=== PATIENT | female | born 1980 | race Caucasian/White ===

== ENCOUNTER 2024-11-23 13:11 | Inpatient (IN) | payer MEDICAID, OTHER ==
[~2024-11-23] VITALS: Ht 172.7 cm; Wt 113.0 kg
--- NOTE | 2024-11-23 13:21 | ECG ---
[facility] Test Date: 2024-11-23 Test Time: 13:13:45 Pat Name: SHERIF CORONEL Department: ED Room: [address] [place] [address] Gender: F Paster Hat Lining: MINO : 1980 Requested By: YURIY MARKHAM Order Number: [id number] Reading MD: Gerson Ford Measurements Intervals [place] Rate: 70 P: 0 HI: 134 QRS: 7 QRSD: 91 T: 22 QT: 420 QTc: 454 Interpretive Statements Atrial-paced complexes Baseline wander in lead(s) V4 Electronically Signed On 11-27-2024 9:43:15 PDT by Gerson Ford Please click the below link to view image of tracing.
--- NOTE | 2024-11-23 13:25 | ED.PDOC ---
HPI Comments 44 y.o female with PMHx of HTN, COPD, and bipolar disorder, presents to the ED via EMS for a chief complaint of chest pain associated with nausea and SOB that started 2-3 days ago. Patient describes pain as sharp, radiates across her chest, rating a 8/10 on the pain scale and worsens on deep inspiration. EMS reports patient's pain also worsened on palpation per their assessment on scene. Patient was given one NTG but patient denied any pain relief. Patient admits to smoking methamphetamine 2 days ago, was seen at [place] for same complaint yesterday and had a full cardiac evaluation as well as abdominal assessment due to pain at that time and was discharged with no acute findings. Patient is not on any current medications. She also reports occasional use of marijuana and tobacco via vape use. Chief Complaint: Chest Pain Time Seen by MD: 13:16 Reviewed Notes: Nurses Notes, Staff Training And Development Manager Notes, Medications, Allergies Allergies: Coded Allergies: Amoxicillin (Verified Allergy, Unknown, 11/23/24) Morphine (Verified Allergy, Unknown, 11/23/24) Information Source: Patient, Emergency Med Personnel Mode of Arrival: EMS Severity: Moderate Timing: Days Duration: Since onset Prehospital treatment: 12 Lead EKG, Tube Cleaning Operator, NTG Location: Substernal Radiation: No Radiation Quality: Sharp Onset: At Rest Cardiac Risk Factors: Family History, HTN PE Risk Factors: None History of: Similar pain in past Modifying Factors: Nothing Associated Signs and Symptoms: SOB, N/V (nausea without vomiting ) Past Medical History PAST MEDICAL HISTORY: COPD, HTN Past Medical History (Other): Bipolar disorder Surgical History: Cholecystectomy, Pacemaker, Tubal Ligation FLOOR SERVICE WORKER SPRING History: No Pertinent FLOOR SERVICE WORKER SPRING History Family History Family History: Family hx of heart magnolia Social History Smoker: Other (vape) Alcohol: Occasionally Drugs: Marijuana, Methamphetamine Lives In: Home Constitutional: denies: chills, diaphoresis, fatigue, fever, malaise, sweats, weakness, others EENTM: denies: blurred vision, double vision, ear bleeding, ear discharge, ear drainage, ear pain, ear ringing, eye pain, eye redness, hearing loss, mouth pain, mouth swelling, nasal discharge, nose bleeding, nose congestion, nose pain, photophobia, tearing, throat pain, throat swelling, voice changes, others Respiratory: reports: SOB at rest, shortness of breath; denies: cough, hemoptysis, orthopnea, SOB with excertion, stridor, wheezing, others Cardiovascular: reports: chest pain; denies: dizzy spells, diaphoresis, Dyspnea on exertion, edema, irregular heart beat, left arm pain, lightheadedness, palpitations, PND, syncope, others Gastrointestinal: reports: nausea; denies: abdomen distended, abdominal pain, blood streaked bowels, constipated, diarrhea, dysphagia, difficulty swallowing, hematemesis, melena, poor appetite, poor fluid intake, rectal bleeding, rectal pain, vomiting, others Genitourinary: denies: abnormal vagina bleeding, burning, dyspareunia, dysuria, flank pain, frequency, hematuria, incontinence, pain, , vagina discharge, urgency, others Neurological: denies: dizziness, fainting, headache, left sided numbness, left sided weakness, numbness, paresthesia, pre-existing deficit, right sided numbness, right sided weakness, seizure, speech problems, tingling, tremors, weakness, others Musculoskeletal: denies: back pain, gout, joint pain, joint swelling, muscle pain, muscle stiffness, neck pain, others Integumetry: denies: bruises, change in color, change in hair/nails, dryness, laceration, lesions, lumps, rash, wounds, others Allergic/Immunocompromised: denies: Difficulty Healing, Frequent Infections, Hives, Itching, others Hematologic/Lymphatic: denies: anemia, blood clots, easy bleeding, easy bruising, swollen glands, others Endocrine: denies: excessive hunger, excessive sweating, excessive thirst, excessive urination, flushing, intolerance to cold, intolerance to heat, unexplained weight gain, unexplained weight loss, others Psychiatric: denies: anxiety, bipolar disorder, depression, hopeless, panic disorder, schizophrenia, sleepless, suicidal, others All Other Systems: Reviewed and Negative Physical Exam General Appearance: Moderate Distress, Obese HEENT: Normal ENT Inspection, Pharynx Normal, TMs Normal Neck: Full Range of Motion, Non-Tender, Normal, Normal Inspection Respiratory: Chest Non-Tender, Lungs Clear, No Accessory Muscle Use, No Respiratory Distress, Normal Breath Sounds Cardiovascular: No Edema, No JVD, No Murmur, No Gallop, Normal Peripheral Pulses, Regular Rate/Rhythm, Other (Pacemaker to the left chest) Breast Exam: Deferred Gastrointestinal: No Organomegaly, Non Tender, No Pulsatile Mass, Normal Bowel Sounds, Soft Genitalia: Deferred Pelvic: Deferred Rectal: Deferred Extremities: No calf tenderness, Normal capillary refill, Normal inspection, Normal range of motion, Non-tender, No pedal edema Musculoskeletal : Apperance: Normal Neurologic: Alert, reclamation kettle tender II-XII nml as Tested, Motor Weakness, Normal Affect, Normal Mood, No Sensory Deficits Cerebellar Function: Normal Reflexes: Normal Skin: Dry, Pallor, Warm Lymphatic: No Adenopathy EKG EKG : Pulse Rate (adult): 70 Cardiac Rhythm: Paced Was a procedure done? Was a procedure done?: No CP Differential Dx Differential Diagnosis: N/A Differential Diagnosis: Angina, Chest Wall Pain, Cholelithiasis, Costochondritis, Esophageal reflux/spasm, Gastritis, Myocardial Infarction, Pericarditis, Pneumonia, Pulmonary Embolus X-Ray, Labs, Meds, VS Vital Signs Date Time Temp Pulse Resp B/P (MAP) Pulse Ox O2 Delivery O2 Flow Rate FiO2 11/23/24 14:35 78 11/23/24 14:12 Room Air* 0 21 11/23/24 13:25 70 11/23/24 13:14 97.9 79 18 139/97 (111) 98 97.9 11/23/24 13:13 70 Lab Test 11/23/24 13:25 Range/Units White Blood Count 8.1 4.4-10.8 10^3/uL Red Blood Count 4.20 4.0-5.20 10^6/uL Hemoglobin 12.2 12.2-16.2 g/dL Hematocrit 35.8 L 36.0-46.0 % Mean Corpuscular Volume 85.2 80.0-100.0 fL Mean Corpuscular Hemoglobin 29.0 28.0-32.0 pg Mean Corpuscular Hemoglobin Concent 34.0 32.0-36.0 g/dL Red Cell Distribution Width 14.5 H 11.8-14.3 % Platelet Count 240 140-450 10^3/uL Mean Platelet Volume 7.5 6.9-10.8 fL Neutrophils (%) (Auto) 73.5 37.0-80.0 % Lymphocytes (%) (Auto) 17.6 10.0-50.0 % Monocytes (%) (Auto) 6.9 0.0-12.0 % Eosinophils (%) (Auto) 1.4 0.0-7.0 % Basophils (%) (Auto) 0.6 0.0-2.0 % Neutrophils # (Auto) 6.0 1.6-8.6 10 ^3/uL Lymphocytes # (Auto) 1.4 0.4-5.4 10 ^3/uL Monocytes # (Auto) 0.6 0-1.3 10 ^3/uL Eosinophils # (Auto) 0.1 0-0.8 10 ^3/uL Basophils # (Auto) 0 0-0.2 10 ^3/uL Nucleated Red Blood Cells 0.0 % Sodium Level 142 136-145 mmol/L Potassium Level 3.6 3.5-5.1 mmol/L Chloride Level 108 H 98-107 mmol/L Carbon Dioxide Level 24 20-31 mmol/L Anion Gap 10 5-15 Blood Urea Nitrogen 15 9-23 mg/dL Creatinine 1.05 H 0.550-1.02 mg/dL Glomerular Filtration Rate Calc 67 >90 mL/min BUN/Creatinine Ratio 14.3 10.0-20.0 Serum Glucose 84 74-106 mg/dL Calcium Level 9.7 8.7-10.4 mg/dL Troponin I High Sensitivity 4 </=34 ng/L Current Medications Medications (Trade) Dose Ordered Sig/Trent Route Start Time Stop Time Status Last Admin Aspirin 162 mg ONCE ONCE PO 11/23/24 13:30 11/23/24 13:32 DC 11/23/24 13:30 The patient was given aspirin here in the emergency department's The CBC and chemistry panel are within normal limits At this time, an IV Hep-Lock was established The chest x-ray shows: No sign of any abnormalities At this time, the patient is being admitted to the hospitalist The patient understands and agrees with the management The patient's diagnosis is acute myocardial ischemia and methamphetamine use Images Reviewed?: Images reviewed and evaluated by me Time of 1ST Reevaluation: 14:00 Reevaluation 1ST: Unchanged Patient Education/Counseling: Diagnosis, Treatment, Prognosis Family Education/Counseling: No Family Present SEPSIS Sepsis Screen Physician Orders Electrocardigram (11/23/24 16:17) Troponin-I Hs (11/23/24 14:17) Troponin-I Hs (11/23/24 16:17) Chest Portable (11/23/24 14:23) Blood Pressure (11/23/24 13:30) Pulse Oximetry (11/23/24 13:30) Drug Screen (11/23/24 13:30) Heplock Iv (11/23/24 13:30) Tube Cleaning Operator (11/23/24 13:30) Vital Signs Date Time Temp Pulse Resp B/P (MAP) Pulse Ox O2 Delivery O2 Flow Rate FiO2 11/23/24 14:35 78 11/23/24 14:12 Room Air* 0 21 11/23/24 13:25 70 11/23/24 13:14 97.9 79 18 139/97 (111) 98 97.9 11/23/24 13:13 70 Laboratory Tests Test 11/23/24 13:25 White Blood Count 8.1 10^3/uL (4.4-10.8) Medications Medications Dose Ordered Sig/Trent Route Start Time Stop Time Status Last Admin Dose Admin Aspirin 162 mg ONCE ONCE PO 11/23/24 13:30 11/23/24 13:32 DC 11/23/24 13:30 Departure 1 Departure Time of Disposition: 15:11 Impression: Primary Impression: Acute chest pain Additional Impression: Acute myocardial ischemia Disposition: 09 ADMITTED INPATIENT Admit to: Tele Condition: Fair Critical Care Note Critical Care Time?: Yes (45 min-critical care time only) Stability Stability form required: Yes Unstable for transfer: Telemetry monitoring (Telemetry monitoring required), ED Physician Assesment (Clinical assesment) Heart Score Heart Score: Heart Score Response (Comments) Value History Moderate Suspicious 1 EKG Normal 0 Age <45 0 Risk Factors >3 or Hx ASHD 2 Troponin Normal limit 0 Total 3 I personally scribed for YURIY MARKHAM MD ([facility]) on 11/23/24 at 13:25. Electronically submitted by Bertha Sims ([employer]). I personally scribed for YURIY MARKHAM MD ([facility]) on 11/23/24 at 13:26. Electronically submitted by Bertha Sims ([employer]). YURIY MARKHAM MD Nov 23, 2024 13:25
[2024-11-23] MEDS: ASPirin 81 mg TAB PO ONE (13:30)
[2024-11-23 13:37] LABS: Basophils # (auto) 0 10 ^3/uL (0-0.2); Basophils % (auto) 0.6 % (0.0-2.0); Eosinophils # (auto) 0.1 10 ^3/uL (0-0.8); Eosinophils % (auto) 1.4 % (0.0-7.0); Hematocrit 35.8 % (36.0-46.0); Hemoglobin 12.2 g/dL (12.2-16.2); Lymphocytes # (auto) 1.4 10 ^3/uL (0.4-5.4); Lymphocytes % (auto) 17.6 % (10.0-50.0); Mean Corpuscular Volume 85.2 fL (80.0-100.0); Monocytes # (auto) 0.6 10 ^3/uL (0-1.3); Monocytes % (auto) 6.9 % (0.0-12.0); Neutrophils % (auto) 73.5 % (37.0-80.0); Platelet Count (auto) 240 10^3/uL (140-450); Red Cell Distribution Width 14.5 % (11.8-14.3); White Blood Cell 8.1 10^3/uL (4.4-10.8)
[2024-11-23 13:46] LABS: Potassium 3.6 mmol/L (3.5-5.1); Sodium 142 mmol/L (136-145)
[2024-11-23 13:47] LABS: Anion Gap 10 (5-15); Carbon Dioxide 24 mmol/L (20-31)
[2024-11-23 13:48] LABS: Calcium 9.7 mg/dL (8.7-10.4)
[2024-11-23 13:49] LABS: Chloride 108 mmol/L (98-107)
[2024-11-23 13:53] LABS: BUN/Creatinine Ratio 14.3 (10.0-20.0); Blood Urea Nitrogen 15 mg/dL (9-23); Glucose 84 mg/dL (74-106)
--- NOTE | 2024-11-23 14:37 | ECG ---
[facility] Test Date: 2024-11-23 Test Time: 14:35:52 Pat Name: SHERIF CORONEL Department: ED Room: [address] [place] [address] Gender: F Attractions Associate: MARIA : 1980 Requested By: YURIY MARKHAM Order Number: [id number] Reading MD: Gerson Ford Measurements Intervals [place] Rate: 78 P: -1 WV: 122 QRS: 51 QRSD: 93 T: 31 QT: 378 QTc: 431 Interpretive Statements Sinus rhythm Baseline wander in lead(s) V2,V6 Electronically Signed On 11-27-2024 9:43:28 PDT by Gerson Ford Please click the below link to view image of tracing.
--- NOTE | 2024-11-23 14:52 | DVH ---
CHEST RADIOGRAPH Indication: cp Technique: Single frontal view of the chest was obtained COMPARISON: None FINDINGS: Lines and Tubes: Left chest pacemaker Lungs: Clear Pleura: No effusion. No pneumothorax. Cardiomediastinal contours: Unremarkable Bones: Unremarkable IMPRESSION: No acute disease.
[2024-11-23] MEDS ORDERED: ONDANSETRON HCL 4 MG/2 ML VIAL IV PRN (17:30)
[2024-11-23] MEDS ORDERED: ACETAMINOPHEN 325 MG TAB PO PRN (17:30)
[2024-11-23] MEDS ORDERED: MORPHINE SULFATE INJ 2 MG/ml SYRG IV PRN (17:30)
[2024-11-23] MEDS ORDERED: NITROGLYCERIN 0.4 MG SL TAB SL PRN (17:30)
[2024-11-23] MEDS ORDERED: DOCUSATE SOD 100 MG CAP PO PRN (17:30)
--- NOTE | 2024-11-23 17:58 | DVHHP2 ---
History of Present Illness Reason for Visit: Chest pain History of Present Illness Namita Voss is a 44-year-old female with past medical history of hypertension, pacemaker, and borderline personality disorder, who came to the hospital for chest pain. Patient states she has been having chest pain for a couple days. She states she was just discharged today from [facility] for chest pain. States she had a cardiac work up and was cleared, but her chest pain continued so she came to this ER. She also states that she feels there is something wrong with her pacemaker. Patient is homeless, and states the only medication she is taking is her antihypertensive. Cardiovascular: HTN Pulmonary: COPD Psych: Other (Borderline personality disorder) Past Surgical History: Cholecystectomy, Other (Pacemaker), Tubal Ligation Smoke: 1 pack per day (vape) ALCOHOL: rare Drugs: Marijuana, Other (methamphetamine) Lives: Homeless Domestic Violence: Neg Review of Systems Constitutional: No: Fever, Chills, Sweats, Weakness, Malaise, Other Eyes: No: Pain, Vision change, Conjunctivae inflammation, Eyelid inflammation, Other, Redness ENT: No: Ear pain, Ear discharge, Nose pain, Nose discharge, Nose congestion, M outh pain, Mouth swelling, Throat pain, Throat swelling, Other Respiratory: No: Cough, Dry, Shortness of breath, SOB with excertion, Wheezing, Hemoptysis, Pleuritic Pain, Sputum, Wheezing, Other Cardiovascular: Chest Pain; No: Palpitations, Orthopnea, Paroxysmal Noc. Dyspnea, Edema, Lt Headedness, Other Gastrointestinal: No: Nausea, Vomiting, Abdominal Pain, Diarrhea, Constipation, Melena, Hematochezia, Other Genitourinary: No Dysuria, No Frequency, No Incontinence, No Hematuria, No Retention, No Other Musculoskeletal: No: other, neck pain, shoulder pain, arm pain, back pain, hand pain, leg pain, foot pain Skin: No: Rash, Lesions, Jaundice, Bruising, Other Neurological: No: Weakness, Numbness, Incoordination, Change in speech, Confu erin, Seizures, Other Allergies: Coded Allergies: Amoxicillin (Verified Allergy, Unknown, 11/23/24) Morphine (Verified Allergy, Unknown, 11/23/24) Exam Vital Signs Vital Signs Date Time Temp Pulse Resp B/P (MAP) Pulse Ox O2 Delivery O2 Flow Rate FiO2 11/23/24 14:35 78 11/23/24 14:12 Room Air* 0 21 11/23/24 13:14 97.9 18 139/97 (111) 98 97.9 General Appearance: Alert, Oriented X3, Cooperative, mild distress HEENT: Atraumatic, PERRLA Respiratory: Clear to auscultation, Normal air movement Cardiovascular: Regular rate, Normal S1, Normal S2, No murmurs Abdominal: Normal bowel sounds, Soft, No tenderness Extremities: No clubbing, No cyanosis, No edema, Normal pulses Skin: No rashes, No breakdown, No significant lesion Neuro: Normal gait, Normal speech, Strength at 5/5 X4 ext Psych/Mental Status: Mental status NL, Mood NL Labs/Xrays Labs Test 11/23/24 16:57 11/23/24 13:25 Range/Units White Blood Count 8.1 4.4-10.8 10^3/uL Red Blood Count 4.20 4.0-5.20 10^6/uL Hemoglobin 12.2 12.2-16.2 g/dL Hematocrit 35.8 L 36.0-46.0 % Mean Corpuscular Volume 85.2 80.0-100.0 fL Mean Corpuscular Hemoglobin 29.0 28.0-32.0 pg Mean Corpuscular Hemoglobin Concent 34.0 32.0-36.0 g/dL Red Cell Distribution Width 14.5 H 11.8-14.3 % Platelet Count 240 140-450 10^3/uL Mean Platelet Volume 7.5 6.9-10.8 fL Neutrophils (%) (Auto) 73.5 37.0-80.0 % Lymphocytes (%) (Auto) 17.6 10.0-50.0 % Monocytes (%) (Auto) 6.9 0.0-12.0 % Eosinophils (%) (Auto) 1.4 0.0-7.0 % Basophils (%) (Auto) 0.6 0.0-2.0 % Neutrophils # (Auto) 6.0 1.6-8.6 10 ^3/uL Lymphocytes # (Auto) 1.4 0.4-5.4 10 ^3/uL Monocytes # (Auto) 0.6 0-1.3 10 ^3/uL Eosinophils # (Auto) 0.1 0-0.8 10 ^3/uL Basophils # (Auto) 0 0-0.2 10 ^3/uL Nucleated Red Blood Cells 0.0 % Sodium Level 142 136-145 mmol/L Potassium Level 3.6 3.5-5.1 mmol/L Chloride Level 108 H 98-107 mmol/L Carbon Dioxide Level 24 20-31 mmol/L Anion Gap 10 5-15 Blood Urea Nitrogen 15 9-23 mg/dL Creatinine 1.05 H 0.550-1.02 mg/dL Glomerular Filtration Rate Calc 67 >90 mL/min BUN/Creatinine Ratio 14.3 10.0-20.0 Serum Glucose 84 74-106 mg/dL Calcium Level 9.7 8.7-10.4 mg/dL CHEST RADIOGRAPH FINDINGS: Lines and Tubes: Left chest pacemaker Lungs: Clear Pleura: No effusion. No pneumothorax. Cardiomediastinal contours: Unremarkable Bones: Unremarkable IMPRESSION: No acute disease. Assessment/Plan Assessment/Plan Assessment: Acute chest pain, Polysubstance abuse, Hypertension, Plan: Admit to Tele, ECHO, ASA, Statin, Lipid panel, TSH, Social service consult, Consider cardiology consult if symptoms persist, Plan discussed with: Patient My Orders Orders - JENSEN CARRION Procedure Category Date Status Time Admit ADMIT 11/23/24 Transmitted 17:29 Code Status CODE 11/23/24 Transmitted 17:29 2 Gm Sodium Diet DIET 11/23/24 Transmitted Dinner Ondansetron Hcl PHA 11/23/24 Transmitted (Zofran) 17:30 Docusate Sodium PHA 11/23/24 Transmitted Capsule (Colace 17:30 Complete Blood Count LAB 11/24/24 Verified 04:00 Comprehensive LAB 11/24/24 Verified Metabolic Panel 04:00 Pt Request For Service PT 11/23/24 Transmitted 17:29 Echo 2d Mode Cardiac US 11/23/24 Transmitted DOP 17:29 Condition: Fair ABIMBOLA 11/23/24 Transmitted 17:29 Acetaminophen Tablet PHA 11/23/24 Transmitted (Tylenol Tablet) 17:30 Nitroglycerin PHA 11/23/24 Transmitted Sublingual (Ntrostat 17:30 Morphine Sulfate PHA 11/23/24 Transmitted Injection 17:30 Stat Ekg For Chest ABIMBOLA 11/23/24 Transmitted Pain 17:29 Notify Of Changes ABIMBOLA 11/23/24 Transmitted From Base 17:29 Film Washer For ABIMBOLA 11/23/24 Transmitted 24 Hours 17:29 Emergency Dysrhythmia ABIMBOLA 11/23/24 Transmitted Protocol 17:29 Rhythm Strips Once ABIMBOLA 11/23/24 Transmitted Every Shift 17:29 Oxygen By Nasal RT 11/23/24 Transmitted Cannula 17:29 Lisinopril Tablet PHA 11/24/24 Transmitted (Zestril Tablet) 10:00 Urinalysis LAB 11/23/24 Transmitted 17:29 Date of Service: Nov 23, 2024 Billing Provider: JENSEN CARRION Common Visit Codes: [id number] INP/OBS CARE (MOD) JENSEN CARRION Nov 23, 2024 17:58
[2024-11-23 18:02] VITALS: BP 135/82; PULSE 87; RESP 20; TEMP 98; O2SAT 98
[2024-11-23 18:24] LABS: Triglycerides 79 mg/dL (< 150)
[2024-11-23 18:25] LABS: LDL Cholesterol 66 mg/dL (< 100)
[2024-11-23 18:26] LABS: Cholesterol 113 mg/dL (< 200)
[2024-11-23 18:30] LABS: HDL Cholesterol 38 mg/dL (40-59)
[2024-11-23] MEDS ORDERED: ATORVASTATIN 20 MG TAB PO SCH (22:00)
[2024-11-24] MEDS ORDERED: ASPirin 81 mg TAB PO SCH (10:00)
[2024-11-24] MEDS ORDERED: LISINOPRIL 20 MG TAB PO SCH (10:00)
[2024-11-24] MEDS ORDERED: BUMETANIDE 1 MG TAB PO SCH (10:00)
== END 2024-11-23 21:45 | disposition left against medical advice (07) | DRG 203 ==
LOC: EDBD 13:11 → ER 13:11 → OVERFLOW 17:29 → UNDODEPER 11-24 01:02
PROVIDERS: ADMIT Nurse Practitioner Family; ATTEND Nurse Practitioner Family
DX: R07.89 Other chest pain (principal); F17.200 Nicotine dependence, unspecified, uncomplicated; I10 Essential (primary) hypertension; F31.9 Bipolar disorder, unspecified; F60.3 Borderline personality disorder; J44.9 Chronic obstructive pulmonary disease, unspecified; F19.10 Other psychoactive substance abuse, uncomplicated; Z53.29 Procedure and treatment not carried out because of patient's decision for other reasons; Z90.49 Acquired absence of other specified parts of digestive tract; Z95.0 Presence of cardiac pacemaker; Z59.00 Homelessness unspecified; Z88.5 Allergy status to narcotic agent; Z88.0 Allergy status to penicillin
CPT/HCPCS: 36415; 71045; 80048; 80061; 84443; 84484; 85025; 93005; 99291; G0378

== ENCOUNTER 2024-12-03 16:46 | Inpatient (IN) | payer MEDICAID ==
[~2024-12-03] VITALS: Ht 172.7 cm; Wt 121.6 kg
[2024-12-03 17:45] LABS: Hematocrit 38.7 % (36.0-46.0); Hemoglobin 13.0 g/dL (12.2-16.2); Mean Corpuscular Hemoglobin 28.8 pg (28.0-32.0); Mean Corpuscular Volume 86.2 fL (80.0-100.0); Nucleated Red Blood Cells % 0.0 %
[2024-12-03 17:52] LABS: Chloride 103 mmol/L (98-107); Potassium 3.8 mmol/L (3.5-5.1); Sodium 141 mmol/L (136-145)
[2024-12-03 17:53] LABS: Anion Gap 10 (5-15); Calcium 9.8 mg/dL (8.7-10.4); Carbon Dioxide 28 mmol/L (20-31)
[2024-12-03 17:58] LABS: BUN/Creatinine Ratio 9.4 (10.0-20.0); Blood Urea Nitrogen 11 mg/dL (9-23); Glucose 82 mg/dL (74-106)
--- NOTE | 2024-12-03 18:52 | ED.PDOC ---
HPI Comments 44-year-old female with a history of CHF, COPD, hypertension and angina brought in by EMS from a local hotel complaining of chest pain for the past hour. Patient describes the pain as pressure-like and sharp, constant, localized to the retrosternal area, associated with nausea and shortness a breath. She states she has been short of breath and dizzy since last night. She states she has been noncompliant with her Lasix and has noticed increasing bilateral lower extremity and abdominal edema. EMS administered 2 sublingual nitroglycerin tablets which improved the patient's chest pain from 10 out of 10 to 5/10. She also received 324 mg of aspirin p.o. Chief Complaint: Chest Pain Time Seen by MD: 16:54 Primary Care Provider: unknown Allergies: Coded Allergies: Amoxicillin (Verified Allergy, Unknown, 11/23/24) Fentanyl (Verified Allergy, Unknown, 11/23/24) Morphine (Verified Allergy, Unknown, 11/23/24) Mode of Arrival: EMS Past Medical History PAST MEDICAL HISTORY: Angina, CHF, COPD, HTN Surgical History: Cholecystectomy, Pacemaker, Tubal Ligation DRAFTER CHIEF DESIGN History: No Pertinent DRAFTER CHIEF DESIGN History Family History Family History: Reviewed,noncontributory to illness, Family hx of heart magnolia Social History Smoker: Other (vape) Alcohol: Occasionally Drugs: Marijuana, Methamphetamine Lives In: Home All Other Systems: Reviewed and Negative (Comprehensive systems review obtained and negative except for what is stated in the HPI.) Physical Exam General Appearance: Mild Distress, Obese HEENT: Other (Pupils and face symmetric. Moist mucous membranes.) Neck: Full Range of Motion, Normal Inspection Respiratory: Decreased Breath Sounds, No Accessory Muscle Use, No Respiratory Distress, Rales Cardiovascular: No JVD, Regular Rate/Rhythm Breast Exam: Deferred Gastrointestinal: Non Tender, Soft Genitalia: Deferred Pelvic: Deferred Rectal: Deferred Extremities: Leg edema, Normal range of motion, Non-tender, Pedal edema Neurologic: Alert (Oriented x4), Normal Affect, Normal Mood Cerebellar Function: NOT DONE Reflexes: NOT DONE Skin: Dry, Normal Color, Warm Lymphatic: NOT DONE EKG EKG : Comments Sinus rhythm, rate 81, normal WA and QRS intervals, QTC 483, normal axis, normal QRS, no ST/T change. Was a procedure done? Was a procedure done?: No CP Differential Dx Differential Diagnosis: Angina, Anxiety / Panic Attack, Heart Failure, PR, Pacemaker Malfunction Differential Diagnosis: CHF Differential Diagnosis: Chest Wall Pain, Esophageal reflux/spasm, Gastritis, Pericarditis, Pneumonia X-Ray, Labs, Meds, VS Vital Signs Date Time Temp Pulse Resp B/P (MAP) Pulse Ox O2 Delivery O2 Flow Rate FiO2 12/03/24 20:58 98.5 77 18 152/115 (127) 100 98.5 12/03/24 16:50 81 12/03/24 16:50 97.8 92 16 138/80 (99) 97 97.8 Lab Test 12/03/24 19:02 12/03/24 17:33 Range/Units Troponin I High Sensitivity 5 4 </=34 ng/L White Blood Count 7.9 4.4-10.8 10^3/uL Red Blood Count 4.49 4.0-5.20 10^6/uL Hemoglobin 13.0 12.2-16.2 g/dL Hematocrit 38.7 36.0-46.0 % Mean Corpuscular Volume 86.2 80.0-100.0 fL Mean Corpuscular Hemoglobin 28.8 28.0-32.0 pg Mean Corpuscular Hemoglobin Concent 33.5 32.0-36.0 g/dL Red Cell Distribution Width 15.2 H 11.8-14.3 % Platelet Count 292 140-450 10^3/uL Mean Platelet Volume 7.4 6.9-10.8 fL Neutrophils (%) (Auto) 70.0 37.0-80.0 % Lymphocytes (%) (Auto) 20.5 10.0-50.0 % Monocytes (%) (Auto) 7.2 0.0-12.0 % Eosinophils (%) (Auto) 1.6 0.0-7.0 % Basophils (%) (Auto) 0.7 0.0-2.0 % Neutrophils # (Auto) 5.6 1.6-8.6 10 ^3/uL Lymphocytes # (Auto) 1.6 0.4-5.4 10 ^3/uL Monocytes # (Auto) 0.6 0-1.3 10 ^3/uL Eosinophils # (Auto) 0.1 0-0.8 10 ^3/uL Basophils # (Auto) 0.1 0-0.2 10 ^3/uL Nucleated Red Blood Cells 0.0 % Sodium Level 141 136-145 mmol/L Potassium Level 3.8 3.5-5.1 mmol/L Chloride Level 103 98-107 mmol/L Carbon Dioxide Level 28 20-31 mmol/L Anion Gap 10 5-15 Blood Urea Nitrogen 11 9-23 mg/dL Creatinine 1.17 H 0.550-1.02 mg/dL Glomerular Filtration Rate Calc 59 >90 mL/min BUN/Creatinine Ratio 9.4 L 10.0-20.0 Serum Glucose 82 74-106 mg/dL Calcium Level 9.8 8.7-10.4 mg/dL B-Type Natriuretic Peptide 72.34 0-100 pg/mL PROCEDURE(s): CXRP - CHEST PORTABLE REASON: cp ORDER NUMBER(s): [id number], ACCESSION NUMBER(s): [id number] CHEST RADIOGRAPH Indication: cp Technique: Single frontal view of the chest was obtained Comparison: XY CHEST PORTABLE on DOS: 11/23/24 FINDINGS: Lines and Tubes: None. Left-sided approach dual lead pacemaker terminating within right atrium and right ventricle. Lungs: No focal consolidation. Pleura: No effusion. No pneumothorax. Cardiomediastinal contours: Unremarkable Bones: No acute osseous abnormality. IMPRESSION: No acute cardiopulmonary disease. X-Ray, Labs, Meds, VS Comment 44-year-old female with history of CHF, COPD, hypertension, angina and pacemaker insertion brought in by EMS complaining of shortness of breath and chest pain Vitals unremarkable Exam remarkable for bibasilar rales and lower abdominal and bilateral lower extremity edema Rhythm strip independently interpreted by me: Sinus rhythm, rate 81, no ectopy. Chest x-ray unremarkable CBC unremarkable, basic metabolic panel remarkable for creatinine 1.17, BNP negative, troponin negative Patient treated with the following: Aspirin 325 mg and sublingual nitroglycerin x2 administered by EMS ED patient received nitro paste 1/2 inch to chest wall, lasix 40 mg IV On re-evaluation, patient states pain has improved. Vitals were stable. Plan is to admit the patient for diuresis and Cardiology evaluation. Time of 1ST Reevaluation: 18:49 Reevaluation 1ST: Improved Patient Education/Counseling: Diagnosis, Treatment, Need For Follow Up Family Education/Counseling: No Family Present SEPSIS Sepsis Screen Date sepsis recognized/suspect: Dec 03, 2024 Time Sepsis recognized/suspect: 1650 Recent Procedure: No On Antibiotic Therapy: No Respiratory Rate >20: No Heart Rate >90: Yes Temp<36 C (96.8 F) or >38.3 C: No SBP <90 or MAP <65 mmHG: No New Acute Mental Status Change: No Is the patient on CPAP, BIPAP,: No SEPSIS EXCLUSION NOTE: Sepsis Exclusion Note: Patient presents with SIRS criteria, but the SIRS response is attributed to [ac sycuan chest pain and shortness of breath ], not a suspected infection. Sepsis bundle is not initiated at this time, due to this reason. Further management will focus on the treatment of the above condition (s). Physician Orders Chest Portable (12/03/24 16:54) Urinalysis (12/03/24 16:54) Electrocardigram (12/03/24 16:54) Electrocardigram (12/03/24 17:54) Electrocardigram (12/03/24 19:54) Test, Urine (12/03/24 16:54) Vital Signs Date Time Temp Pulse Resp B/P (MAP) Pulse Ox O2 Delivery O2 Flow Rate FiO2 12/03/24 20:58 98.5 77 18 152/115 (127) 100 98.5 12/03/24 16:50 81 12/03/24 16:50 97.8 92 16 138/80 (99) 97 97.8 Laboratory Tests Test 12/03/24 17:33 White Blood Count 7.9 10^3/uL (4.4-10.8) Departure 1 Departure Time of Disposition: 18:50 Impression: Primary Impression: Chest pain with high risk for cardiac etiology Additional Impression: CHF exacerbation Disposition: 09 ADMITTED INPATIENT Admit to: [facility] Condition: Guarded Critical Care Note Critical Care Time?: Yes (35 min-critical care time only) Critical care comment: Critical care time including multiple bedside re-evaluations, review of lab and imaging studies, and discussion of the case with the admitting provider. Patient is high risk for hemodynamic decompensation. Stability Stability form required: No Heart Score Heart Score: Heart Score Response (Comments) Value History Highly Suspicious 2 EKG Normal 0 Age <45 0 Risk Factors >3 or Hx ASHD 2 Troponin Normal limit 0 Total 4 SINA DE LA CRUZ MD Dec 03, 2024 18:52
--- NOTE | 2024-12-03 21:27 | DVH ---
CHEST RADIOGRAPH Indication: cp Technique: Single frontal view of the chest was obtained Comparison: XY CHEST PORTABLE on DOS: 11/23/24 FINDINGS: Lines and Tubes: None. Left-sided approach dual lead pacemaker terminating within right atrium and r ight ventricle. Lungs: No focal consolidation. Pleura: No effusion. No pneumothorax. Cardiomediastinal contours: Unremarkable Bones: No acute osseous abnormality. IMPRESSION: No acute cardiopulmonary disease.
[2024-12-03] MEDS ORDERED: NITROGLYCERIN 0.4 MG SL TAB SL PRN (23:00)
[2024-12-03] MEDS ORDERED: MORPHINE SULFATE INJ 2 MG/ml SYRG IV PRN (23:00)
--- NOTE | 2024-12-03 23:07 | DVHHP2 ---
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 Chest pain is localized, stabbing and pressure like sensation, aggravated on minimal exertion, relief on rest. EMS administered sublingual nitroglycerin tablets which improved the patient's chest. Patient having multiple history of similar symptom and last episode on November 22, went to [facility] ER and discharged after workup. Patient seen by casting machine adjuster in [place] and last visit was 6 months ago. Patient unable to walk more than 1 block due to feeling SOB. Currently denies any fever, cough, headache, nausea, abdominal pain, dysuria,N/V. 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, borderline personality, CHF Surgical History: Cholecystectomy, Pacemaker, Tubal Ligation LAUNCHMAN History: tubal ligation Family History:noncontributory Smoker: Other (vape), Alcohol: Occasionally Drugs: Marijuana, Methamphetamine Lives In: Homeless Allergy: PAS, penicillin, morphine, fentanyl PCP: unknown Review of Systems Constitutional: Yes: Weakness; No: Fever, Chills, Sweats, Malaise, Other Eyes: No: Pain, Vision change, Conjunctivae inflammation, Eyelid inflammation, Other, Redness ENT: No: Ear pain, Ear discharge, Nose pain, Nose discharge, Nose congestion, Mouth pain, Mouth swelling, Throat pain, Throat swelling, Other Respiratory: Shortness of breath, SOB with excertion; No: Cough, Dry, Wheezing, Hemoptysis, Pleuritic Pain, Sputum, Wheezing, Other Cardiovascular: Chest Pain, Edema; No: Palpitations, Orthopnea, Paroxysmal Noc. Dyspnea, Lt Headedness, Other Gastrointestinal: No: Nausea, Vomiting, Abdominal Pain, Diarrhea, Constipation, Melena, Hematochezia, Other Genitourinary: No Dysuria, No Frequency, No Incontinence, No Hematuria, No Retention, No Other Musculoskeletal: No: other, neck pain, shoulder pain, arm pain, back pain, hand pain, leg pain, foot pain Skin: No: Rash, Lesions, Jaundice, Bruising, Other Neurological: No: Weakness, Numbness, Incoordination, Change in speech, Confusion, Seizures, Other Allergies: Coded Allergies: Amoxicillin (Verified Allergy, Unknown, 11/23/24) Fentanyl (Verified Allergy, Unknown, 11/23/24) Morphine (Verified Allergy, Unknown, 11/23/24) Exam Vital Signs Vital Signs Date Time Temp Pulse Resp B/P (MAP) Pulse Ox O2 Delivery O2 Flow Rate FiO2 12/03/24 22:58 98.4 75 17 146/103 (117) 100 98.4 General Appearance: Alert, Oriented X3, No acute distress, Other (Obese) HEENT: Atraumatic, PERRLA, EOMI Respiratory: Clear to auscultation, Normal air movement Cardiovascular: Regular rate, Normal S1, Normal S2 Abdominal: Normal bowel sounds, Soft, No tenderness Extremities: No clubbing, No cyanosis, Other (1+ leg edema) Skin: No rashes, No breakdown Neuro: Normal gait, Normal speech Labs/Xrays Labs Test 12/03/24 19:02 12/03/24 17:33 Range/Units Troponin I High Sensitivity 5 </=34 ng/L White Blood Count 7.9 4.4-10.8 10^3/uL Red Blood Count 4.49 4.0-5.20 10^6/uL Hemoglobin 13.0 12.2-16.2 g/dL Hematocrit 38.7 36.0-46.0 % Mean Corpuscular Volume 86.2 80.0-100.0 fL Mean Corpuscular Hemoglobin 28.8 28.0-32.0 pg Mean Corpuscular Hemoglobin Concent 33.5 32.0-36.0 g/dL Red Cell Distribution Width 15.2 H 11.8-14.3 % Platelet Count 292 140-450 10^3/uL Mean Platelet Volume 7.4 6.9-10.8 fL Neutrophils (%) (Auto) 70.0 37.0-80.0 % Lymphocytes (%) (Auto) 20.5 10.0-50.0 % Monocytes (%) (Auto) 7.2 0.0-12.0 % Eosinophils (%) (Auto) 1.6 0.0-7.0 % Basophils (%) (Auto) 0.7 0.0-2.0 % Neutrophils # (Auto) 5.6 1.6-8.6 10 ^3/uL Lymphocytes # (Auto) 1.6 0.4-5.4 10 ^3/uL Monocytes # (Auto) 0.6 0-1.3 10 ^3/uL Eosinophils # (Auto) 0.1 0-0.8 10 ^3/uL Basophils # (Auto) 0.1 0-0.2 10 ^3/uL Nucleated Red Blood Cells 0.0 % Sodium Level 141 136-145 mmol/L Potassium Level 3.8 3.5-5.1 mmol/L Chloride Level 103 98-107 mmol/L Carbon Dioxide Level 28 20-31 mmol/L Anion Gap 10 5-15 Blood Urea Nitrogen 11 9-23 mg/dL Creatinine 1.17 H 0.550-1.02 mg/dL Glomerular Filtration Rate Calc 59 >90 mL/min BUN/Creatinine Ratio 9.4 L 10.0-20.0 Serum Glucose 82 74-106 mg/dL Calcium Level 9.8 8.7-10.4 mg/dL B-Type Natriuretic Peptide 72.34 0-100 pg/mL SEPSIS Sepsis Screen Date sepsis recognized/suspect: Dec 03, 2024 Time Sepsis recognized/suspect: 1649 Recent Procedure: No On Antibiotic Therapy: No Respiratory Rate >20: No Heart Rate >90: Yes Temp<36 C (96.8 F) or >38.3 C: No SBP <90 or MAP <65 mmHG: No New Acute Mental Status Change: No Is the patient on CPAP, BIPAP,: No Physician Orders Chest Portable (12/03/24 16:54) Urinalysis (12/03/24 16:54) Electrocardigram (12/03/24 16:54) Electrocardigram (12/03/24 17:54) Electrocardigram (12/03/24 19:54) Test, Urine (12/03/24 16:54) Admit (12/03/24 23:00) Nitroglycerin Sublingual (Ntrostat Subli (12/03/24 23:00) Morphine Sulfate Injection (12/03/24 23:00) Oxygen By Nasal Cannula (12/03/24 23:00) Stat Ekg For Chest Pain (12/03/24 23:00) Notify Of Changes From Base (12/03/24 23:00) Child Welfare Assistant For 24 Hours (12/03/24 23:00) Emergency Dysrhythmia Protocol (12/03/24 23:00) Rhythm Strips Once Every Shift (12/03/24 23:00) Drug Screen (12/03/24 23:00) Aspirin Tablet (12/04/24 10:00) Atorvastatin (Lipitor) (12/04/24 22:00) Atorvastatin (Lipitor) (12/03/24 23:00) Lisinopril Tablet (Zestril Tablet) (12/04/24 10:00) Furosemide Tablet (Lasix Tablet) (12/04/24 10:00) Echo 2d Mode Cardiac Dop (12/03/24 23:00) Code Status (12/03/24 23:00) Cardiac Diet-2gna,Lofat,Lochol (12/04/24 Breakfast) Vital Signs Date Time Temp Pulse Resp B/P (MAP) Pulse Ox O2 Delivery O2 Flow Rate FiO2 12/03/24 22:58 98.4 75 17 146/103 (117) 100 98.4 12/03/24 22:58 75 18 12/03/24 20:58 98.5 77 18 152/115 (127) 100 98.5 12/03/24 16:50 81 12/03/24 16:50 97.8 92 16 138/80 (99) 97 97.8 Laboratory Tests Test 12/03/24 17:33 White Blood Count 7.9 10^3/uL (4.4-10.8) Assessment/Plan Assessment/Plan # Chest pain rule out ACS -Patient came with chest pain and exertional shortness of breath -Received nitroglycerin tablets sublingually and relieved chest pain -Last seen Cardiology 6 months ago Rob Watkins -Troponin 4, repeat troponin 5 -BNP 72.34 -HEART score-3 , low risk -EKG: HR 81, sinus rhythm, QTc 483 - [id number] mg p.o. daily -Atorvastatin 40 mg p.o. daily -Nitroglycerin sublingually as needed for chest pain -HbA1c level ordered # Congestive heart failure with unknown EF -H/O CHF, on pacemaker -Continue Lasix 20 mg p.o. daily -Bumex1 mg p.o. daily-home medicine. -Last echo 6 months ago-report not available -Echo ordered today -CARDIOLOGY CONSULT # COPD without exacerbation -currently smoke vape -Not on any medication # Essential hypertension -Continue lisinopril 40 mg daily -Monitor blood pressure -DASH diet # Morbid obesity, BMI 38.0 -Lifestyle modification # Diet: cardiac diet # GI prophylaxis: Famotidine 20 mg p.o. b.i.d. #VT prophylaxis: Lovenox 40 mg sc daily. Goals of care discussions, more than28 minute spent. code status: DNR/DNI Case discussed with Dr. Meneses Plan discussed with: Patient, Other (Nurse) My Orders Orders - DARIEN RODRÍGUEZ Procedure Category Date Status Time Admit ADMIT 12/03/24 Verified 23:00 Nitroglycerin [facility] 12/03/24 Verified Sublingual (Ntrostat 23:00 Morphine Sulfate [facility] 12/03/24 Verified Injection 23:00 Oxygen By Nasal RT 12/03/24 Verified Cannula 23:00 Stat Ekg For Chest [facility] 12/03/24 Verified Pain 23:00 Notify Md Of Changes [facility] 12/03/24 Verified From Base 23:00 Child Welfare Assistant For [facility] 12/03/24 Verified 24 Hours 23:00 Emergency Dysrhythmia [facility] 12/03/24 Verified Protocol 23:00 Rhythm Strips Once [facility] 12/03/24 Verified Every Shift 23:00 Drug Screen LAB 12/03/24 Verified 23:00 Aspirin Tablet [facility] 12/04/24 Verified 10:00 Atorvastatin (Lipitor) [facility] 12/04/24 Verified 22:00 Atorvastatin (Lipitor) [facility] 12/03/24 Verified 23:00 Lisinopril Tablet [facility] 12/04/24 Verified (Zestril Tablet) 10:00 Furosemide Tablet [facility] 12/04/24 Verified (Lasix Tablet) 10:00 Echo 2d Mode Cardiac US 12/03/24 Verified DOP 23:00 Code Status CODE 12/03/24 Verified 23:00 Cardiac DIET 12/04/24 Verified Diet-2gna,Lofat,Lochol Breakfast Date of Service: Dec 03, 2024 Billing Provider: TIEN MENESES MD Common Visit Codes: [id number] INP/OBS CARE (HIGH) Secondary Visit Codes: [id number] CARE PLAN 30 MINUTES DARIEN RODRÍGUEZ Dec 03, 2024 23:07
[2024-12-04 05:00] VITALS: BP 162/91; PULSE 73; RESP 16; O2SAT 100
--- NOTE | 2024-12-04 07:21 | ECG ---
[facility] Test Date: 2024-12-03 Test Time: 16:50:33 Pat Name: SHERIF CORONEL Department: ED Room: 0250T Gender: F Bird Raiser: beth : 1980 Requested By: SINA SCHULER Order Number: [id number] Reading MD: Gerson Ford Measurements Intervals [place] Rate: 81 P: 12 [place]: 125 QRS: 40 QRSD: 88 T: 23 QT: 416 QTc: 483 Interpretive Statements Sinus rhythm Electronically Signed On 12-07-2024 18:31:01 PDT by Gerson Ford Please click the below link to view image of tracing.
[2024-12-04] MEDS: NITROGLYCERIN 2% OINT 1GM PKG TD ONE (08:13)
[2024-12-04] MEDS: ENOXAPARIN SOD 40 MG/0.4 ML SYRINGE SC ONE (08:13)
[2024-12-04] MEDS: ATORVASTATIN 20 MG TAB PO ONE (08:13)
[2024-12-04] MEDS: FUROSEMIDE 40 MG/4 ML VIAL IV ONE (08:13)
[2024-12-04 08:18] VITALS: PULSE 82; RESP 13; O2SAT 98
--- NOTE | 2024-12-04 09:15 | DVHINCON2 ---
Date Seen: Dec 04, 2024 Referring Physician MD Joel resident Reason for Consultation Chest pain History of Present Illness This is a 44-year-old female patient who presents to the emergency room with chief complaint of chest pain. The patient states that the chest pain began 1 hour prior to emergency room arrival. She describes the pain as unprovoked, intermittent, sharp and pressure-like in nature, midsternal and nonradiating. She denies any associated symptoms. Initial twelve lead electrocardiogram reveals normal sinus rhythm without any significant ST segment changes. Troponin levels have been negative. Significant past medical history includes congestive heart failure, hypertension, dyslipidemia, presence of permanent pacemaker ([employer]en), COPD, polysubstance abuse, borderline personality disorder and obesity. The patient reports that she underwent a coronary angiogram in [place] in June 2023 in which no catheter based intervention was deemed necessary. The patient is from [place] and moved to the [facility] approximately three weeks ago. She reports being currently homeless and living out of motels. She has not established any care since moving to this area. Past Medical History Past medical history reviewed. No other significant than mentioned above. Past Surgical History Permanent pacemaker implantation June 2023 ([employer]udes) Cholecystectomy Tubal ligation Family History Family history reviewed. Social History Patient admits to recent methamphetamine use, last time approximately two days ago Patient has a 30 pack-year history, and currently vapes daily Denies any alcohol use Allergies: Coded Allergies: Amoxicillin (Verified Allergy, Unknown, 11/23/24) Fentanyl (Verified Allergy, Unknown, 11/23/24) Morphine (Verified Allergy, Unknown, 11/23/24) Home Meds Home medications reviewed. Current Medications Current Medications Medications (Trade) Dose Ordered Sig/Trent Route PRN Reason Start Time Stop Time Status Last Admin Nitroglycerin (Ntrostat Sublingual) 0.4 mg Q5MINP PRN SL FOR CHEST PAIN 12/03/24 23:00 Morphine Sulfate 2 mg Q30M PRN IV FOR CHEST PAIN 12/03/24 23:00 Hold Aspirin 81 mg DAILY PO 12/04/24 10:00 Atorvastatin Calcium (Lipitor) 40 mg HS PO 12/04/24 22:00 Lisinopril (Zestril Tablet) 40 mg DAILY PO 12/04/24 10:00 Furosemide (Lasix Tablet) 20 mg DAILY PO 12/04/24 10:00 Enoxaparin Sodium (Lovenox) 40 mg DAILY SC 12/04/24 10:00 Famotidine (Pepcid Tablet) 20 mg Q12HR PO 12/04/24 10:00 Review of Systems Constitutional: No symptom reported Ears, Nose, & Throat: No symptom reported Eyes: No symptom reported Neurological: No symptoms reported Pulmonary/Respiratory: No symptoms reported Cardiovascular: Chest pain Gastrointestinal: No symptom reported Genitourinary: No symptom reported Musculoskeletal: No symptom reported Skin: No symptom reported Psychiatric: No symptom reported Endocrine: No symptom reported Hematologic/Lymphatic: No symptom reported Vital Signs Vital Signs Date Time Temp Pulse Resp B/P (MAP) Pulse Ox O2 Delivery O2 Flow Rate FiO2 12/04/24 08:18 82 13 98 Room Air* 0 21 12/04/24 08:00 98.4 162/91 (114) 98.4 Physical Exam General Appearance: Cooperative. Well-developed. Well-nourished. No acute distress. Pulmonary/Respiratory: Clear, bilateral breaths sounds. Cardiovascular/Chest: Regular rate and rhythm. . Peripheral Pulses: 2+ Radial (R). 2+ Radial (L). 2+ Pedal (R). 2+ Pedal (L) Abdominal Exam: Normal bowel sounds. Ankle Exam: Negative ankle edema Lower extremities: Nonpitting bilateral lower extremity edema Neuro/Mental Status: A/OX4, coherent. Thoughts/Psych: Normal thought pattern. Appropriate mood and affect. Good judgment and insight. Appearance: No acute distress. Skin Exam: Normal inspection. Normal color. Warm and dry. Labs/Diagnostic Data Labs Test 12/04/24 03:06 12/03/24 19:02 12/03/24 17:33 Range/Units Hemoglobin A1c 5.0 <5.7 % A1C Troponin I High Sensitivity 5 </=34 ng/L White Blood Count 7.9 4.4-10.8 10^3/uL Red Blood Count 4.49 4.0-5.20 10^6/uL Hemoglobin 13.0 12.2-16.2 g/dL Hematocrit 38.7 36.0-46.0 % Mean Corpuscular Volume 86.2 80.0-100.0 fL Mean Corpuscular Hemoglobin 28.8 28.0-32.0 pg Mean Corpuscular Hemoglobin Concent 33.5 32.0-36.0 g/dL Red Cell Distribution Width 15.2 H 11.8-14.3 % Platelet Count 292 140-450 10^3/uL Mean Platelet Volume 7.4 6.9-10.8 fL Neutrophils (%) (Auto) 70.0 37.0-80.0 % Lymphocytes (%) (Auto) 20.5 10.0-50.0 % Monocytes (%) (Auto) 7.2 0.0-12.0 % Eosinophils (%) (Auto) 1.6 0.0-7.0 % Basophils (%) (Auto) 0.7 0.0-2.0 % Neutrophils # (Auto) 5.6 1.6-8.6 10 ^3/uL Lymphocytes # (Auto) 1.6 0.4-5.4 10 ^3/uL Monocytes # (Auto) 0.6 0-1.3 10 ^3/uL Eosinophils # (Auto) 0.1 0-0.8 10 ^3/uL Basophils # (Auto) 0.1 0-0.2 10 ^3/uL Nucleated Red Blood Cells 0.0 % Sodium Level 141 136-145 mmol/L Potassium Level 3.8 3.5-5.1 mmol/L Chloride Level 103 98-107 mmol/L Carbon Dioxide Level 28 20-31 mmol/L Anion Gap 10 5-15 Blood Urea Nitrogen 11 9-23 mg/dL Creatinine 1.17 H 0.550-1.02 mg/dL Glomerular Filtration Rate Calc 59 >90 mL/min BUN/Creatinine Ratio 9.4 L 10.0-20.0 Serum Glucose 82 74-106 mg/dL Calcium Level 9.8 8.7-10.4 mg/dL B-Type Natriuretic Peptide 72.34 0-100 pg/mL Assessment Chest pain, ruled out ACS Rule out structural heart disease Hypertension Dyslipidemia Presence of permanent pacemaker ([employer]arsen/[employer]) COPD Borderline personality disorder Methamphetamine use Tobacco use Obesity Plan/Recommendation We will continue with the following plan/recommendations (Dr. Meyer): * Transthoracic echocardiogram to evaluate cardiac function * Chest pain protocol * HEART score: 1 point (low score) * Blood pressure control * Single antiplatelet therapy and lipid-lowering agent * Pacemaker interrogation- can be done outpatient * Close Cardiac surveillance * Risk factor modifications, counseled * Cessation of amphetamine use * Medication compliance * Establishing a entertainment director in the outpatient setting Case discussed with . The patient reports a coronary angiogram approximately one year ago in June of 2023 in [place], which no catheter based intervention was deemed necessary. Given the patient's clinical presentation, unremarkable troponin level, and unremarkable twelve lead electrocardiogram, doubt ACS. In the setting of an unremarkable transthoracic echocardiogram, there is no further inpatient cardiac workup indicated at this time. The patient will need to establish care with a entertainment director in the outpatient setting. Thank you for allowing us to care for this patient. Please call with any questions or concerns. Critical care time spent : 44 minutes This medical document was created using an electronic medical record system with voice recognition software and computerized dictation system. Although this document has been carefully reviewed, there might still be some phonetic and typographical errors. Occasional wrong-word or ``sound-alike substitutions may have occurred due to the inherent limitations of voice recognition software. These areas are purely typographical due to imperfections of the software programs and do not reflect any compromise in the patient's medical care. Please read the chart carefully and recognize, using context, where these substitutions have occurred. Plan discussed with: Patient NYHA Physical activity limitations: NA Date of Service: Dec 04, 2024 Billing Provider: JONNIE ALANIS Cardiology Common Codes: [id number] INP/OBS CARE (High) Cardiology Consultation Codes: [id number] CONSULT <45MIN JONNIE ALANIS Dec 04, 2024 09:15
[2024-12-04] MEDS: ENOXAPARIN SOD 40 MG/0.4 ML SYRINGE SC SCH (10:53)
[2024-12-04] MEDS: FAMOTIDINE 20 MG TAB PO SCH (10:53)
[2024-12-04] MEDS: LISINOPRIL 20 MG TAB PO SCH (10:53)
[2024-12-04] MEDS: FUROSEMIDE 20 MG TAB PO SCH (10:54)
[2024-12-04 10:55] LABS: Triglycerides 77.0 mg/dL (< 150)
[2024-12-04 10:56] LABS: Magnesium 2.0 mg/dL (1.6-2.6)
[2024-12-04 10:57] LABS: Cholesterol 155.0 mg/dL (< 200)
[2024-12-04 10:58] LABS: HDL Cholesterol 63.0 mg/dL (40-59)
[2024-12-04 13:41] LABS: Urine Protein, UAD TRACE (Negative)
[2024-12-04 13:45] LABS: Cannabinoid Screen, Urine Pos (NEGATIVE)
[2024-12-04 13:46] LABS: Amphetamine Screen, Urine Pos (NEGATIVE); Barbiturate Scree,Urine Neg (NEGATIVE); Benzodiazephine Screen, Urine Neg (NEGATIVE); Cocaine Screen, Urine Neg (NEGATIVE); Opiate Scree,Urine Neg (NEGATIVE); Phencyclidine Screen, Urine Neg (NEGATIVE)
[2024-12-04 14:25] VITALS: BP 147/100; PULSE 76; RESP 20; TEMP 98.5; O2SAT 97
[2024-12-04] MEDS ORDERED: clonazePAM 0.5 MG TAB PO PRN (16:00)
[2024-12-04] MEDS: HALOPERIDOL LACTATE 5 MG/ML INJ VIAL ONE (16:11)
[2024-12-04] MEDS: LORazepam 2MG/ML-1ML VIAL ONE (16:11)
[2024-12-04] MEDS: LORazepam 2MG/ML-1ML VIAL IM ONE (16:11)
[2024-12-04] MEDS: HALOPERIDOL LACTATE 5 MG/ML INJ VIAL IM ONE (16:12)
[2024-12-04 16:25] VITALS: BP 143/77; PULSE 70; RESP 12; TEMP 99; O2SAT 98
--- NOTE | 2024-12-04 17:50 | DVHSR ---
APPROVED REPORT EXAM: Two-dimensional and M-mode echocardiogram with Doppler and color Doppler. Blood Pressure: 162/91 mmHg INDICATION Chest Pain Surgery/Intervention Pacemaker: RISK FACTORS Obesity: Height: 5'8, Weight: 250 DIMENSIONS LVDd4.5 (3.8-5.7cm)LA (2D)4.5 (1.9-4.0cm)Aortic Root3.4 (2.0-3.7cm) LVDs3.4 (2.5-4.0cm)LA (MM) (1.9-4.0cm)Aortic Cusp Exc1.9 (1.5-2.0cm) EF (%) 55.0 (55-70%)Rt. Atrium2.6 (1.9-4.0cm)Asc. Aorta cm IVSd0.8 (0.7-1.1cm)RV (D) (1.8-2.4cm) PWd0.9 (0.7-1.1cm) Mitral Valve MitralMitral Stenosis E wave0.75m/sMV Mean GR.mmHg A wave1.14m/sMV Peak GR.mmHg E/A ratio0.72D MVAcm2 DECEL [id number] 1/2 Timems Aortic Valve Aortic ValveAortic Stenosis V10.96m/Steff Mean GR.5mmHg V21.55m/Steff Peak GR.10mmHg LVOT Diameter1.9 (1.8-2.4cm)Doppler AVA1.76cm2 Pulmonic Valve V21.15m/s Tricuspid Valve TR Velocity2.42m/s [id number] Other Information Technically limited study due to body habitus. Conclusion Left ventricle: Left ventricle was normal-sized with normal systolic function. LVEF was around 55-6 0%. There was no gross wall motion abnormality. Diastolic function of left ventricle was considered normal for age. Right ventricle was normal-sized with normal systolic function. Both atria were normal-sized. Aortic valve was trileaflet. There was no aortic insufficiency/stenosis. There was no mitral regurg itation. There was trace/mild tricuspid regurgitation. Pulmonary valve was not well visualized. Right ventricular systolic pressure was assessed at 32 mm Hg which was considered normal. There was no pericardial effusion.
--- NOTE | 2024-12-04 17:55 | DVHPNRES ---
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 Chest pain is localized, stabbing and pressure like sensation, aggravated on minimal exertion, relief on rest. EMS administered sublingual nitroglycerin tablets which improved the patient's chest. Patient having multiple history of similar symptom and last episode on November 22, went to [facility] ER and discharged after workup. Patient seen by television maintenance worker in [place] and last visit was 6 months ago. Patient unable to walk more than 1 block due to feeling SOB. Currently denies any fever, cough, headache, nausea, abdominal pain, dysuria, N/V. 12/04/24: Today, the patient was examined at bedside, patient report that the chest pain and shortness of breath has improved, denies palpitation, dizziness, fever or chills. Vital signs were review BP: 143/77 mmHg, EKG was normal, ECHO was ordered. Cardiology evaluated the patient today. We will continue following up with this patient. Constitutional: Weakness; No: Fever, Chills, Sweats, Malaise, Other Eyes: No: Pain, Vision change, Conjunctivae inflammation, Eyelid inflammation, Other, Redness ENT: No: Ear pain, Ear discharge, Nose pain, Nose discharge, Nose congestion, Mouth pain, Mouth swelling, Throat pain, Throat swelling, Other Respiratory: Shortness of breath, SOB with excertion; No: Cough, Dry, Wheezing, Hemoptysis, Pleuritic Pain, Sputum, Wheezing, Other Cardiovascular: Chest Pain; No: Palpitations, Orthopnea, Paroxysmal Noc. Dyspnea, Lt Headedness, Other Gastrointestinal: No: Nausea, Vomiting, Abdominal Pain, Diarrhea, Constipation, Melena, Hematochezia, Other Genitourinary: No Dysuria, No Frequency, No Incontinence, No Hematuria, No Retention, No Other Musculoskeletal: No: other, neck pain, shoulder pain, arm pain, back pain, hand pain, leg pain, foot pain Skin: No: Rash, Lesions, Jaundice, Bruising, Other Neurological: No: Weakness, Numbness, Incoordination, Change in speech, Confusion, Seizures, Other Coded Allergies: Amoxicillin (Verified Allergy, Unknown, 11/23/24) Fentanyl (Verified Allergy, Unknown, 11/23/24) Morphine (Verified Allergy, Unknown, 11/23/24) Objective vital signs Vital Sign Date Time Temp Pulse Resp B/P (MAP) Pulse Ox O2 Delivery O2 Flow Rate FiO2 12/04/24 16:25 99.0 70 12 143/77 (99) 98 99.0 12/04/24 10:00 Room Air* 0 21 medications Current Medications Medications Dose Ordered Sig/Trent Route Start Time Stop Time Status Last Admin Dose Admin Nitroglycerin 0.4 mg Q5MINP PRN SL 12/03/24 23:00 Morphine Sulfate 2 mg Q30M PRN IV 12/03/24 23:00 Hold Aspirin 81 mg DAILY PO 12/04/24 10:00 12/04/24 10:54 81 MG Atorvastatin Calcium 40 mg HS PO 12/04/24 22:00 Lisinopril 40 mg DAILY PO 12/04/24 10:00 12/04/24 10:53 40 MG Furosemide 20 mg DAILY PO 12/04/24 10:00 12/04/24 10:54 20 MG Enoxaparin Sodium 40 mg DAILY SC 12/04/24 10:00 12/04/24 10:53 40 MG Famotidine 20 mg Q12HR PO 12/04/24 10:00 12/04/24 10:53 20 MG Clonazepam 0.5 mg Q8HP PRN PO 12/04/24 16:00 Examination General Appearance: Alert, Oriented X3, No acute distress, Other (Obese) HEENT: Atraumatic, PERRLA, EOMI Respiratory: Clear to auscultation, Normal air movement Cardiovascular: Regular rate, Normal S1, Normal S2 Abdominal: Normal bowel sounds, Soft, No tenderness Extremities: No clubbing, No cyanosis, no leg swelling. Skin: No rashes, No breakdown Neuro: Normal gait, Normal speech laboratory and microbiology Laboratory Tests 12/03/24 17:33 Test 12/03/24 17:33 Range/Units Serum Glucose 82 74-106 mg/dL Problem List/Assessment/Plan Problem List/Assessment/Plan # Chest pain rule out ACS -Patient came with chest pain and exertional shortness of breath -Received nitroglycerin tablets sublingually and relieved chest pain -Last seen Cardiology 6 months ago Rob Watkins -Troponin 4, repeat troponin 5 -BNP 72.34 -HEART score-3 , low risk -EKG: HR 81, sinus rhythm, QTc 483 - [id number] mg p.o. daily -Atorvastatin 40 mg p.o. daily -Nitroglycerin sublingually as needed for chest pain -HbA1c level ordered -Cardiac consult: Transthoracic echocardiogram to evaluate cardiac function * Chest pain protocol * HEART score: 1 point (low score) * Blood pressure control * Single antiplatelet therapy and lipid-lowering agent * Pacemaker interrogation- can be done outpatient * Close Cardiac surveillance * Risk factor modifications, counseled * Cessation of amphetamine use * Medication compliance * Establishing a television maintenance worker in the outpatient setting # Congestive heart failure with unknown EF -H/O CHF, on pacemaker -Continue Lasix 20 mg p.o. daily -Bumex1 mg p.o. daily-home medicine. -Last echo 6 months ago-report not available -Echo ordered today # COPD without exacerbation -currently smoke vape -Not on any medication # Essential hypertension -Continue lisinopril 40 mg daily -Monitor blood pressure -DASH diet # Morbid obesity, BMI 38.0 -Lifestyle modification # Diet: cardiac diet # GI prophylaxis: Famotidine 20 mg p.o. b.i.d. #VT prophylaxis: Lovenox 40 mg sc daily. Goals of care discussions, more than 35 minute spent. Code status: DNR/DNI Case discussed with Dr. Benedict Plan discussed with: Patient, Patient agrees with the plan. MEDICALLY CLEAR FOR TELE-PSYCHIATRIC CONSULT Plan discussed with: Patient Date of Service: Dec 04, 2024 Billing Provider: CAMI BO MD Common Visit Codes: [id number] INP/OBS CARE(HIGH) LUIS AVALOS RESIDENT Dec 04, 2024 17:55 CAMI BO MD Dec 07, 2024 00:12
[2024-12-04 21:00] VITALS: BP 117/88; PULSE 70; RESP 15; TEMP 98.1; O2SAT 99
[2024-12-04] MEDS: ATORVASTATIN 20 MG TAB PO SCH (21:27)
[2024-12-05 00:29] VITALS: BP 129/69; PULSE 69; RESP 16; TEMP 98.9; O2SAT 98
[2024-12-05 05:05] VITALS: BP 123/75; PULSE 77; RESP 16; TEMP 98; O2SAT 96
[2024-12-05 06:05] LABS: Hematocrit 38.9 % (36.0-46.0); Hemoglobin 13.1 g/dL (12.2-16.2); Mean Corpuscular Hemoglobin 29.2 pg (28.0-32.0); Mean Corpuscular Volume 86.9 fL (80.0-100.0); Nucleated Red Blood Cells % 0.1 %
[2024-12-05 06:07] LABS: Alanine Aminotransferase 10 U/L (7-40); Albumin 3.8 g/dL (3.2-4.8); Alkaline Phosphatase 109 U/L (46-116); Anion Gap 9 (5-15); BUN/Creatinine Ratio 14.4 (10.0-20.0); Blood Urea Nitrogen 13 mg/dL (9-23); Calcium 9.9 mg/dL (8.7-10.4); Carbon Dioxide 26 mmol/L (20-31); Chloride 102 mmol/L (98-107); Glucose 93 mg/dL (74-106); Potassium 3.9 mmol/L (3.5-5.1); Sodium 137 mmol/L (136-145); Total Protein 7.2 g/dL (5.7-8.2)
[2024-12-05 06:08] LABS: Bilirubin, Total 0.4 mg/dL (0.2-1.0)
[2024-12-05 08:40] VITALS: PULSE 70; RESP 14; O2SAT 98
[2024-12-05 13:59] LABS: COVID19 ANTIGEN SOFIA FIA NEGATIVE (NEGATIVE)
--- NOTE | 2024-12-05 17:51 | DVHPNRES ---
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 Chest pain is localized, stabbing and pressure like sensation, aggravated on minimal exertion, relief on rest. EMS administered sublingual nitroglycerin tablets which improved the patient's chest. Patient having multiple history of similar symptom and last episode on November 22, went to [facility] ER and discharged after workup. Patient seen by museum educator in [place] and last visit was 6 months ago. Patient unable to walk more than 1 block due to feeling SOB. Currently denies any fever, cough, headache, nausea, abdominal pain, dysuria, N/V. 12/04/24: Today, the patient was examined at bedside, patient report that the chest pain and shortness of breath has improved, denies palpitation, dizziness, fever or chills. Vital signs were review BP: 143/77 mmHg, EKG was normal, ECHO was ordered. Cardiology evaluated the patient today. We will continue following up with this patient. 12/05/24: Today, the patient was evaluated at bedside, patient report that the chest pain 3/10, she denies palpitation, dizziness, fever or chills. Vital signs were review BP: 123/75 mmHg, EKG was normal, ECHO showed 55-60%. Cardiology is on board. Patient was crying today and expressed having suicidal thought of harming herself and others. Psychiatric consult was requested. We will continue following up with this patient closely. Constitutional: Weakness; No: Fever, Chills, Sweats, Malaise, Other Eyes: No: Pain, Vision change, Conjunctivae inflammation, Eyelid inflammation, Other, Redness ENT: No: Ear pain, Ear discharge, Nose pain, Nose discharge, Nose congestion, Mouth pain, Mouth swelling, Throat pain, Throat swelling, Other Respiratory: No: No shortness of breath Cough, Dry, Wheezing, Hemoptysis, Pleuritic Pain, Sputum, Wheezing, Other Cardiovascular: Chest Pain; No: Palpitations, Orthopnea, Paroxysmal Noc. Dyspnea, Lt Headedness, Other Gastrointestinal: No: Nausea, Vomiting, Abdominal Pain, Diarrhea, Constipation, Melena, Hematochezia, Other Genitourinary: No Dysuria, No Frequency, No Incontinence, No Hematuria, No Retention, No Other Musculoskeletal: No: other, neck pain, shoulder pain, arm pain, back pain, hand pain, leg pain, foot pain Skin: No: Rash, Lesions, Jaundice, Bruising, Other Neurological: No: Weakness, Numbness, Incoordination, Change in speech, Confusion, Seizures, Other Coded Allergies: Amoxicillin (Verified Allergy, Unknown, 11/23/24) Fentanyl (Verified Allergy, Unknown, 11/23/24) Morphine (Verified Allergy, Unknown, 11/23/24) Objective vital signs Vital Sign Date Time Temp Pulse Resp B/P (MAP) Pulse Ox O2 Delivery O2 Flow Rate FiO2 12/05/24 12:00 87 17 143/98 (113) 98 12/05/24 08:40 Room Air* 0 21 12/05/24 08:01 97.9 97.9 medications Current Medications Medications Dose Ordered Sig/Trent Route Start Time Stop Time Status Last Admin Dose Admin Nitroglycerin 0.4 mg Q5MINP PRN SL 12/03/24 23:00 Morphine Sulfate 2 mg Q30M PRN IV 12/03/24 23:00 Hold Aspirin 81 mg DAILY PO 12/04/24 10:00 12/05/24 10:05 81 MG Atorvastatin Calcium 40 mg HS PO 12/04/24 22:00 12/04/24 21:27 40 MG Lisinopril 40 mg DAILY PO 12/04/24 10:00 12/04/24 10:53 40 MG Furosemide 20 mg DAILY PO 12/04/24 10:00 12/05/24 10:05 20 MG Enoxaparin Sodium 40 mg DAILY SC 12/04/24 10:00 12/05/24 10:05 40 MG Famotidine 20 mg Q12HR PO 12/04/24 10:00 12/05/24 10:05 20 MG Lorazepam 1 mg Q2HP PRN IV 12/04/24 18:15 Examination Examination General Appearance: crying, alert, Oriented X3, No acute distress, Other (Obese) HEENT: Atraumatic, PERRLA, EOMI Respiratory: Clear to auscultation, Normal air movement Cardiovascular: Regular rate, Normal S1, Normal S2 Abdominal: Normal bowel sounds, Soft, No tenderness Extremities: No clubbing, No cyanosis, no leg swelling. Skin: No rashes, No breakdown Neuro: Normal gait, Normal speech Mini-mental test: alert, Oriented X3, she express she is feeling sad, hopeless and reports to having thoughts of self harm and harm others. laboratory and microbiology Laboratory Tests 12/05/24 05:22 Test 12/05/24 05:22 Range/Units Serum Glucose 93 74-106 mg/dL Problem List/Assessment/Plan Problem List/Assessment/Plan # Chest pain rule out ACS/ Likely due to amphetamine use. -Patient came with chest pain and exertional shortness of breath -Received nitroglycerin tablets sublingually and relieved chest pain -Last seen Cardiology 6 months ago Rob Watkins -Troponin 4, repeat troponin 5 -BNP 72.34 -HEART score-3 , low risk -EKG: HR 81, sinus rhythm, QTc 483 - [id number] mg p.o. daily -Atorvastatin 40 mg p.o. daily -Nitroglycerin sublingually as needed for chest pain -HbA1c level ordered -ASVCD score: 1.3% -Cardiac consult: Transthoracic echocardiogram to evaluate cardiac function * Chest pain protocol * HEART score: 1 point (low score) * Blood pressure control * Single antiplatelet therapy and lipid-lowering agent * Pacemaker interrogation- can be done outpatient * Close Cardiac surveillance * Risk factor modifications, counseled * Cessation of amphetamine use * Medication compliance * Establishing a museum educator in the outpatient setting # Congestive heart failure with preserved ejection fraction. -H/O CHF, on pacemaker -Continue Lasix 20 mg p.o. daily -Bumex1 mg p.o. daily-home medicine. -Last echo 6 months ago-report not available -Echo: EF 55-60% # COPD without exacerbation -currently smoke vape -Not on any medication # Essential hypertension -Continue lisinopril 40 mg daily -Monitor blood pressure -DASH diet # Morbid obesity, BMI 38.0 -Lifestyle modification #Suicidal thoughts -Psychiatric consult was requested. # Diet: cardiac diet # GI prophylaxis: Famotidine 20 mg p.o. b.i.d. #VT prophylaxis: Lovenox 40 mg sc daily. Goals of care discussions, more than 35 minute spent. Code status: DNR/DNI Case discussed with Dr. Benedict Plan discussed with: Patient, Patient agrees with the plan. MEDICALLY CLEAR FOR TELE-PSYCHIATRIC CONSULT Plan discussed with: Patient My Orders My Orders Orders - LUIS AVALOS Procedure Category Date Status Time Complete Blood Count LAB 12/06/24 Verified 04:00 Comprehensive LAB 12/06/24 Verified Metabolic Panel 04:00 Date of Service: Dec 05, 2024 Billing Provider: CAMI BO MD Common Visit Codes: [id number] INP/OBS CARE(HIGH) LUIS AVALOS RESIDENT Dec 05, 2024 17:51 CAMI BO MD Dec 07, 2024 00:35
--- NOTE | 2024-12-05 18:39 | DVHINCON2 ---
Date of Service if different f: Dec 05, 2024 Consultation ([facility]) Progress: Somewhat better Labs Laboratory Tests Test 12/03/24 17:33 12/03/24 19:02 12/04/24 03:06 12/04/24 10:03 B-Type Natriuretic Peptide 72.34 pg/mL (0-100) Troponin I High Sensitivity 5 ng/L (</=34) Hemoglobin A1c 5.0 % A1C (<5.7) Magnesium Level 2.0 mg/dL (1.6-2.6) Triglycerides Level 77 mg/dL (< 150) Cholesterol Level 155 mg/dL (< 200) LDL Cholesterol 89 mg/dL (< 100) HDL Cholesterol 63 mg/dL (40-59) Thyroid Stimulating Hormone (TSH) 3.35 uIU/mL (0.55-4.78) Bedside Glucose 116 mg/dl (70-106) Test 12/04/24 13:07 12/05/24 05:22 12/05/24 13:13 Urine Color Yellow (Yellow) Urine Clarity Hazy (Clear) Urine pH 6.5 (5.0-9.0) Urine Specific [place] 1.022 (1.001-1.035) Urine Protein Trace (Negative) Urine Ketones Negative (Negative) Urine Blood Negative /uL (Negative) Urine Nitrite Negative (Negative) Urine Bilirubin Negative (Negative) Urine Urobilinogen Normal mg/dL (Negative) Urine Leukocyte Esterase Trace /uL (Negative) Urine RBC 6 /hpf (0 - 4) Urine Microscopic WBC 8 /HPF (0-5) Urine Squamous Epithelial Cells Mod /hpf (<5) Urine Bacteria Few /hpf (None Seen) Urine Mucus Few (None Seen) Urine Glucose Normal mg/dL (Normal) Urine Test Negative (Negative) Urine Opiates Screen Neg (NEGATIVE) Urine Fentanyl Screen Neg (NEGATIVE) Urine Barbiturates Screen Neg (NEGATIVE) Urine Phencyclidine Screen Neg (NEGATIVE) Urine Amphetamines Screen Pos (NEGATIVE) Urine Benzodiazepines Screen Neg (NEGATIVE) Urine Cocaine Screen Neg (NEGATIVE) Urine Cannabinoids Screen Pos (NEGATIVE) White Blood Count 6.6 10^3/uL (4.4-10.8) Red Blood Count 4.47 10^6/uL (4.0-5.20) Hemoglobin 13.1 g/dL (12.2-16.2) Hematocrit 38.9 % (36.0-46.0) Mean Corpuscular Volume 86.9 fL (80.0-100.0) Mean Corpuscular Hemoglobin 29.2 pg (28.0-32.0) Mean Corpuscular Hemoglobin Concent 33.6 g/dL (32.0-36.0) Red Cell Distribution Width 15.1 % (11.8-14.3) Platelet Count 285 10^3/uL (140-450) Mean Platelet Volume 7.4 fL (6.9-10.8) Neutrophils (%) (Auto) 62.5 % (37.0-80.0) Lymphocytes (%) (Auto) 28.7 % (10.0-50.0) Monocytes (%) (Auto) 6.7 % (0.0-12.0) Eosinophils (%) (Auto) 1.7 % (0.0-7.0) Basophils (%) (Auto) 0.4 % (0.0-2.0) Neutrophils # (Auto) 4.1 10 ^3/uL (1.6-8.6) Lymphocytes # (Auto) 1.9 10 ^3/uL (0.4-5.4) Monocytes # (Auto) 0.4 10 ^3/uL (0-1.3) Eosinophils # (Auto) 0.1 10 ^3/uL (0-0.8) Basophils # (Auto) 0 10 ^3/uL (0-0.2) Nucleated Red Blood Cells 0.1 % Sodium Level 137 mmol/L (136-145) Potassium Level 3.9 mmol/L (3.5-5.1) Chloride Level 102 mmol/L (98-107) Carbon Dioxide Level 26 mmol/L (20-31) Anion Gap 9 (5-15) Blood Urea Nitrogen 13 mg/dL (9-23) Creatinine 0.90 mg/dL (0.550-1.02) Glomerular Filtration Rate Calc 81 mL/min (>90) BUN/Creatinine Ratio 14.4 (10.0-20.0) Serum Glucose 93 mg/dL (74-106) Calcium Level 9.9 mg/dL (8.7-10.4) Total Bilirubin 0.4 mg/dL (0.2-1.0) Aspartate Amino Transf (AST/SGOT) 22 U/L (13-40) Alanine Aminotransferase (ALT/SGPT) 10 U/L (7-40) Alkaline Phosphatase 109 U/L (46-116) Total Protein 7.2 g/dL (5.7-8.2) Albumin 3.8 g/dL (3.2-4.8) Influenza Type A Antigen Negative (Negative) Influenza Type B Antigen Negative (Negative) SARS-CoV-2 Antigen (Rapid) Negative (NEGATIVE) Appetite: Fair Side effects of medications: No Appearance: Older than stated age Psychomotor activity: Calm Behavioral: Cooperative Eye contact: Limited Speech: Dysarthric, Mumbled Affect: Mood Congruent Mood: Depressed Thought processes: Linear/Goal-directed Suicidal ideations: Absent Homicidal ideations: Present (active) Plan for (Homicide) No plans disclosed. Orientation: Person, Place, Situation Memory intact: Recent Intellect: Average Abstractability: [place] Concentration: Limited Attention: Limited Judgement: Poor Insight: Poor Vitals Vital Signs Date Time Temp Pulse Resp B/P (MAP) Pulse Ox O2 Delivery O2 Flow Rate FiO2 12/05/24 12:00 87 17 143/98 (113) 98 12/05/24 08:40 Room Air* 0 21 12/05/24 08:01 97.9 97.9 Current medications Current Medications Medications Dose Ordered Sig/Trent Route Start Time Stop Time Status Last Admin Dose Admin Nitroglycerin 0.4 mg Q5MINP PRN SL 12/03/24 23:00 Morphine Sulfate 2 mg Q30M PRN IV 12/03/24 23:00 Hold Aspirin 81 mg DAILY PO 12/04/24 10:00 12/05/24 10:05 81 MG Atorvastatin Calcium 40 mg HS PO 12/04/24 22:00 12/04/24 21:27 40 MG Lisinopril 40 mg DAILY PO 12/04/24 10:00 12/04/24 10:53 40 MG Furosemide 20 mg DAILY PO 12/04/24 10:00 12/05/24 10:05 20 MG Enoxaparin Sodium 40 mg DAILY SC 12/04/24 10:00 12/05/24 10:05 40 MG Famotidine 20 mg Q12HR PO 12/04/24 10:00 12/05/24 10:05 20 MG Lorazepam 1 mg Q2HP PRN IV 12/04/24 18:15 Treatment plan discussed: With staff Medication adjusted: Yes Labs ordered: No Psychotherapy provided: Yes Type: Involuntary Diagnosis: 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 Plan : Pt came to the ED for evaluation of CP and SOB. Pt has CHF, HTN, Pasemaker. Pt has been improving in termsof CP and SOB but today evealed that she has plan to kill her father. Pt is a poor historian, has been homeless for 1 yr and it seems to be (at least partly) be her fathers fault. He also took away her 2 dogs and gave them away. THe pt is very angry and sad, tearful when talking about all this. Pt mumbles when she talks at times and is hard to understand. Pt does not disclose the way she would do it, but when asked what she would do if she leaves the hospital she says she doesn't know where to go, would go back to living on the streets and find a way to kill her father. Please assign a 1:1 Sitter if staffing permits. Please start a 5150. Please try to place pt in an IP psych unit. Please start lexparo 10 mg PO dialy. History of Present Illness Reason for Consult : Homicidal thoughts. HPI : Pt was admitted for CP and SOB, got treated for it and feels better now. Pt has past diagnoses of CHF, HTN. Pt says she wants to kill her father because he took her dogs and gave them away. Pt lives on the streets and her dogs keep away the aggressors. Without them she is a target. Pt feels that her mood is unstable right now. Denies AVH. Past Psychiatric History : November last year admitted to inpatient psych hospital and july this year because BF said she threatened his kids. Past Medical History : CHF, HTN, dyslipidemia, Pacemaker installed last year. Social History : Pt is homeless for 1 yr. 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 Assessment/Diagnosis/Plan Reviewed: Care Plan, Labs, Medications EVELIN ESTEVEZ MD Dec 05, 2024 18:39
[2024-12-05 19:30] VITALS: PULSE 70; RESP 20; O2SAT 96
[2024-12-05 22:44] VITALS: BP 147/101; PULSE 72; RESP 18; TEMP 97.5; O2SAT 96
[2024-12-05] MEDS: LORazepam 2MG/ML-1ML VIAL IV PRN (22:56)
[2024-12-05 23:37] VITALS: PULSE 70
[2024-12-06] VITALS (8 sets, daily range): BP systolic 128–151; BP diastolic 70–97; PULSE 69–108; RESP 16–20; TEMP 97.9–98.6; O2SAT 92–100
[2024-12-06 07:12] LABS: Hematocrit 41.2 % (36.0-46.0); Hemoglobin 13.9 g/dL (12.2-16.2); Mean Corpuscular Hemoglobin 28.9 pg (28.0-32.0); Mean Corpuscular Volume 85.2 fL (80.0-100.0); Nucleated Red Blood Cells % 0.1 %
[2024-12-06 07:36] LABS: Alanine Aminotransferase 12 U/L (7-40); Alkaline Phosphatase 112 U/L (46-116); Anion Gap 11 (5-15); Calcium 10.1 mg/dL (8.7-10.4); Carbon Dioxide 27 mmol/L (20-31); Chloride 100 mmol/L (98-107); Potassium 3.9 mmol/L (3.5-5.1); Sodium 138 mmol/L (136-145)
[2024-12-06 07:37] LABS: Albumin 4.0 g/dL (3.2-4.8)
[2024-12-06 08:06] LABS: BUN/Creatinine Ratio 19.1 (10.0-20.0); Blood Urea Nitrogen 18 mg/dL (9-23); Glucose 82 mg/dL (74-106)
[2024-12-06 08:07] LABS: Total Protein 7.5 g/dL (5.7-8.2)
[2024-12-06 08:09] LABS: Bilirubin, Total 0.5 mg/dL (0.2-1.0)
--- NOTE | 2024-12-06 16:07 | DVHPNRES ---
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 Chest pain is localized, stabbing and pressure like sensation, aggravated on minimal exertion, relief on rest. EMS administered sublingual nitroglycerin tablets which improved the patient's chest. Patient having multiple history of similar symptom and last episode on November 22, went to [facility] ER and discharged after workup. Patient seen by tube wrapper in [place] and last visit was 6 months ago. Patient unable to walk more than 1 block due to feeling SOB. Currently denies any fever, cough, headache, nausea, abdominal pain, dysuria, N/V. 12/04/24: Today, the patient was examined at bedside, patient report that the chest pain and shortness of breath has improved, denies palpitation, dizziness, fever or chills. Vital signs were review BP: 143/77 mmHg, EKG was normal, ECHO was ordered. Cardiology evaluated the patient today. We will continue following up with this patient. 12/05/24: Today, the patient was evaluated at bedside, patient report that the chest pain 3/10, she denies palpitation, dizziness, fever or chills. Vital signs were review BP: 123/75 mmHg, EKG was normal, ECHO showed 55-60%. Cardiology is on board. Patient was crying today and expressed having suicidal thought of harming herself and others. Psychiatric consult was requested. We will continue following up with this patient closely. 12/06/24: The patient was evaluated at bedside, complains of depression and anxiety. Sitter by bedside. She was evaluated by Psychiatry yesterday & was advised 1 on sitter, 5150, placement in psychiatry [facility], Lexapro. Continues to express ideation to hurt her father with any necessary means. No complains of chest pain today. Her toxicology screen was positive for amphetamines, cannabis. UPT negative. Vitals are stable. We will consult nursing home social worker for placement in Psychiatry [facility]. ROS: Constitutional: Depression and anxiety. Denies weight loss, fever and chills. HEENT: Denies changes in vision and hearing. Respiratory: Denies shortness of breath and cough Cardiovascular: Denies chest discomfort or palpitations GI: Denies abdominal pain, nausea, vomiting and diarrhea. : Denies dysuria and urinary frequency. Musculoskeletal: Denies myalgias and joint pain Skin: Denies rash and pruritus. Neurological: Denies dizziness, headache, vision or hearing problems Objective vital signs Vital Sign Date Time Temp Pulse Resp B/P (MAP) Pulse Ox O2 Delivery O2 Flow Rate FiO2 12/06/24 13:00 98.6 100 20 147/84 (105) 100 98.6 12/06/24 08:00 Room Air* 0 21 medications Current Medications Medications Dose Ordered Sig/Trent Route Start Time Stop Time Status Last Admin Dose Admin Nitroglycerin 0.4 mg Q5MINP PRN SL 12/03/24 23:00 Morphine Sulfate 2 mg Q30M PRN IV 12/03/24 23:00 Hold Aspirin 81 mg DAILY PO 12/04/24 10:00 12/06/24 09:31 81 MG Atorvastatin Calcium 40 mg HS PO 12/04/24 22:00 12/05/24 22:26 40 MG Lisinopril 40 mg DAILY PO 12/04/24 10:00 12/06/24 09:32 40 MG Furosemide 20 mg DAILY PO 12/04/24 10:00 12/06/24 09:32 20 MG Enoxaparin Sodium 40 mg DAILY SC 12/04/24 10:00 12/06/24 09:30 40 MG Famotidine 20 mg Q12HR PO 12/04/24 10:00 12/06/24 09:31 20 MG Lorazepam 1 mg Q2HP PRN IV 12/04/24 18:15 12/06/24 13:43 1 MG Citalopram Hydrobromide 20 mg DAILY PO 12/06/24 14:30 Examination General Appearance: Withdrawn. Oriented X3, No acute distress HEENT: Atraumatic, PERRLA, EOMI Respiratory: Clear to auscultation, Normal air movement Cardiovascular: Regular rate, Normal S1, Normal S2 Abdominal: Normal bowel sounds, Soft, No tenderness Extremities: No clubbing, No cyanosis, no leg swelling. Skin: No rashes, No breakdown Neuro: Normal gait, Normal speech Mini-mental test: Alert, Oriented to time place person. she appears withdrawn and reports to having thoughts of self harm and harm others. laboratory and microbiology Laboratory Tests 12/06/24 05:42 Test 12/06/24 05:42 Range/Units Serum Glucose 82 74-106 mg/dL Problem List/Assessment/Plan Problem List/Assessment/Plan # Chest pain rule out ACS/ Likely due to amphetamine use. -Patient came with chest pain and exertional shortness of breath -Received nitroglycerin tablets sublingually and relieved chest pain -Last seen Cardiology 6 months ago [place] -Troponin 4, repeat troponin 5 -BNP 72.34 -HEART score-3 , low risk -EKG: HR 81, sinus rhythm, QTc 483 - [id number] mg p.o. daily -Atorvastatin 40 mg p.o. daily -Nitroglycerin sublingually as needed for chest pain -HbA1c level ordered -ASVCD score: 1.3% -Cardiac consult: Transthoracic echocardiogram to evaluate cardiac function Chest pain protocol HEART score: 1 point (low score) Blood pressure control Single antiplatelet therapy and lipid-lowering agent Pacemaker interrogation- can be done outpatient Close Cardiac surveillance Risk factor modifications, counseled Cessation of amphetamine use Medication compliance Establishing a tube wrapper in the outpatient setting # Congestive heart failure with preserved ejection fraction. -H/O CHF, on pacemaker -Continue Lasix 20 mg p.o. daily -Bumex1 mg p.o. daily-home medicine. -Last echo 6 months ago-report not available -Echo: EF 55-60% # COPD without exacerbation -currently smoke vape -Not on any medication # Essential hypertension -Continue lisinopril 40 mg daily -Monitor blood pressure -DASH diet # Morbid obesity, BMI 38.0 -Lifestyle modification #Suicidal thoughts -Psychiatric consult plans 1 sitter, 5150, placement in psychiatric [facility] and [facility]. -financial services specialist consult placed for placement and psychiatry [facility]. -Started citalopram 20 mg daily # Diet: cardiac diet # GI prophylaxis: Famotidine 20 mg p.o. b.i.d. #VT prophylaxis: Lovenox 40 mg sc daily. Goals of care discussions, more than 25 minute spent. Code status: DNR/DNI Case discussed with Dr. Benedict Plan discussed with: Patient My Orders My Orders Orders - FARRUKH SAMANIEGO Procedure Category Date Status Time Citalopram Tablet PHA 12/06/24 In Process (Celexa Tablet) 14:30 * Vest Presser CONS 12/06/24 Transmitted Consult Date of Service: Dec 06, 2024 Billing Provider: CAMI BO MD Common Visit Codes: [id number] INP/OBS CARE(HIGH) FARRUKH SAMANIEGO RESIDENT Dec 06, 2024 16:07 CAMI BO MD Dec 07, 2024 01:21
[2024-12-06] MEDS: CITALOPRAM HYDROBR 20 MG TAB PO SCH (16:15)
[2024-12-06 17:24] LABS: Hematocrit 42.7 % (36.0-46.0); Hemoglobin 14.3 g/dL (12.2-16.2); Mean Corpuscular Hemoglobin 28.9 pg (28.0-32.0); Mean Corpuscular Volume 85.9 fL (80.0-100.0); Nucleated Red Blood Cells % 0.0 %
[2024-12-06 17:40] LABS: Alanine Aminotransferase 15 U/L (7-40); Albumin 4.0 g/dL (3.2-4.8); Anion Gap 9 (5-15); BUN/Creatinine Ratio 19.8 (10.0-20.0); Blood Urea Nitrogen 21 mg/dL (9-23); Calcium 10.3 mg/dL (8.7-10.4); Carbon Dioxide 27 mmol/L (20-31); Chloride 101 mmol/L (98-107); Potassium 4.2 mmol/L (3.5-5.1); Sodium 137 mmol/L (136-145); Total Protein 7.5 g/dL (5.7-8.2)
[2024-12-06 17:41] LABS: Bilirubin, Total 0.4 mg/dL (0.2-1.0)
[2024-12-06 17:42] LABS: Alkaline Phosphatase 117 U/L (46-116); Glucose 106 mg/dL (74-106)
[2024-12-07 01:00] VITALS: BP_SYST 124; BP_SYST 135; BP_DIAS 68; BP_DIAS 77; PULSE 104; PULSE 70; RESP 18; RESP 19; TEMP 97.7; TEMP 97.8; O2SAT 94; O2SAT 95
[2024-12-07 08:00] VITALS: PULSE 70; RESP 18
[2024-12-07 08:44] VITALS: BP 115/59; PULSE 72; RESP 18; TEMP 97.5; O2SAT 94
--- NOTE | 2024-12-07 11:46 | DVHPNRES ---
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 Chest pain is localized, stabbing and pressure like sensation, aggravated on minimal exertion, relief on rest. EMS administered sublingual nitroglycerin tablets which improved the patient's chest. Patient having multiple history of similar symptom and last episode on November 22, went to [facility] ER and discharged after workup. Patient seen by film casting operator in [place] and last visit was 6 months ago. Patient unable to walk more than 1 block due to feeling SOB. Currently denies any fever, cough, headache, nausea, abdominal pain, dysuria, N/V. 12/04/24: Today, the patient was examined at bedside, patient report that the chest pain and shortness of breath has improved, denies palpitation, dizziness, fever or chills. Vital signs were review BP: 143/77 mmHg, EKG was normal, ECHO was ordered. Cardiology evaluated the patient today. We will continue following up with this patient. 12/05/24: Today, the patient was evaluated at bedside, patient report that the chest pain 3/10, she denies palpitation, dizziness, fever or chills. Vital signs were review BP: 123/75 mmHg, EKG was normal, ECHO showed 55-60%. Cardiology is on board. Patient was crying today and expressed having suicidal thought of harming herself and others. Psychiatric consult was requested. We will continue following up with this patient closely. 12/06/24: The patient was evaluated at bedside, complains of depression and anxiety. Sitter by bedside. She was evaluated by Psychiatry yesterday & was advised 1 on sitter, 5150, placement in psychiatry [facility], Lexapro. Continues to express ideation to hurt her father with any necessary means. No complains of chest pain today. Her toxicology screen was positive for amphetamines, cannabis. UPT negative. Vitals are stable. We will consult social work lecturer for placement in Psychiatry [facility]. 12/07/24:The patient was evaluated at bedside, complains of depression and anxiety. Sitter by bedside. She was evaluated by Psychiatry yesterday & was advised 1 on sitter, 5150, placement in psychiatry [place], [place]. Continues to express ideation to hurt her father with any necessary means. No complains of chest pain today. Her toxicology screen was positive for amphetamines, cannabis. UPT negative. Vitals are stable. We will consult social work lecturer for placement in Psychiatry [facility]. ROS: Constitutional: Depression and anxiety. Denies weight loss, fever and chills. HEENT: Denies changes in vision and hearing. Respiratory: Denies shortness of breath and cough Cardiovascular: Denies chest discomfort or palpitations GI: Denies abdominal pain, nausea, vomiting and diarrhea. : Denies dysuria and urinary frequency. Musculoskeletal: Denies myalgias and joint pain Skin: Denies rash and pruritus. Neurological: Denies dizziness, headache, vision or hearing problems Objective vital signs Vital Sign Date Time Temp Pulse Resp B/P (MAP) Pulse Ox O2 Delivery O2 Flow Rate FiO2 12/07/24 08:44 97.5 72 18 115/59 (77) 94 97.5 12/06/24 20:00 Room Air* 0 21 Total Intake and Output 12/06/24 12/06/24 12/07/24 15:00 23:00 07:00 Intake Total 650 ml 500 ml Balance 650 ml 500 ml medications Current Medications Medications Dose Ordered Sig/Trent Route Start Time Stop Time Status Last Admin Dose Admin Nitroglycerin 0.4 mg Q5MINP PRN SL 12/03/24 23:00 Morphine Sulfate 2 mg Q30M PRN IV 12/03/24 23:00 Hold Aspirin 81 mg DAILY PO 12/04/24 10:00 12/07/24 08:36 81 MG Atorvastatin Calcium 40 mg HS PO 12/04/24 22:00 12/06/24 21:31 40 MG Lisinopril 40 mg DAILY PO 12/04/24 10:00 12/07/24 08:37 40 MG Furosemide 20 mg DAILY PO 12/04/24 10:00 12/07/24 08:37 20 MG Enoxaparin Sodium 40 mg DAILY SC 12/04/24 10:00 12/07/24 08:36 40 MG Famotidine 20 mg Q12HR PO 12/04/24 10:00 12/07/24 08:37 20 MG Lorazepam 1 mg Q2HP PRN IV 12/04/24 18:15 12/06/24 21:31 1 MG Citalopram Hydrobromide 20 mg DAILY PO 12/06/24 14:30 12/07/24 08:37 20 MG Examination General Appearance: Withdrawn. Oriented X3, No acute distress HEENT: Atraumatic, PERRLA, EOMI Respiratory: Clear to auscultation, Normal air movement Cardiovascular: Regular rate, Normal S1, Normal S2 Abdominal: Normal bowel sounds, Soft, No tenderness Extremities: No clubbing, No cyanosis, no leg swelling. Skin: No rashes, No breakdown Neuro: Normal gait, Normal speech Mini-mental test: Alert, Oriented to time place person. she appears withdrawn and reports to having thoughts of self harm and harm others (Father). laboratory and microbiology Laboratory Tests 12/06/24 17:01 Test 12/06/24 17:01 Range/Units Serum Glucose 106 74-106 mg/dL Problem List/Assessment/Plan Problem List/Assessment/Plan # Chest pain rule out ACS/ Likely due to amphetamine use. -Patient came with chest pain and exertional shortness of breath -Received nitroglycerin tablets sublingually and relieved chest pain -Last seen Cardiology 6 months ago [place] -Troponin 4, repeat troponin 5 -BNP 72.34 -HEART score-3 , low risk -EKG: HR 81, sinus rhythm, QTc 483 - [id number] mg p.o. daily -Atorvastatin 40 mg p.o. daily -Nitroglycerin sublingually as needed for chest pain -HbA1c level ordered -ASVCD score: 1.3% -Cardiac consult: Transthoracic echocardiogram to evaluate cardiac function * Chest pain protocol * HEART score: 1 point (low score) * Blood pressure control * Single antiplatelet therapy and lipid-lowering agent * Pacemaker interrogation- can be done outpatient * Close Cardiac surveillance * Risk factor modifications, counseled * Cessation of amphetamine use * Medication compliance * Establishing a film casting operator in the outpatient setting # Congestive heart failure with preserved ejection fraction. -H/O CHF, on pacemaker -Continue Lasix 20 mg p.o. daily -Bumex1 mg p.o. daily-home medicine. -Last echo 6 months ago-report not available -Echo: EF 55-60% # COPD without exacerbation -currently smoke vape -Not on any medication # Essential hypertension -Continue lisinopril 40 mg daily -Monitor blood pressure -DASH diet # Morbid obesity, BMI 38.0 -Lifestyle modification #Suicidal thoughts -Psychiatric consult was requested. # Diet: cardiac diet # GI prophylaxis: Famotidine 20 mg p.o. b.i.d. #VT prophylaxis: Lovenox 40 mg sc daily. Goals of care discussions, more than 35 minute spent. Code status: DNR/DNI Case discussed with Dr. Benedict PCP: patient needs to be established. Plan discussed with: Patient, Patient agrees with the plan. MEDICALLY CLEAR FOR TELE-PSYCHIATRIC CONSULT Plan discussed with: Patient Dietary Evaluation Review Comments: 1) Continue cardiac diet 2) Encourage optimal PO intake 3) Refer to outpatient RD for weight management 4) Follow-up with cardiology, pulmonology, and psychiatry 5) Follow-up with social work lecturer r/t polysubstance abuse 6) Continue to monitor I&O, labs, and skin integrity Expected Outcomes/Goals: 1) appetite and labs to improve 2) gradual wt loss 3) f/u in 3-5 days LUIS AVALOS RESIDENT Dec 07, 2024 11:46
[2024-12-07 17:00] VITALS: BP 132/77; PULSE 70; RESP 18; TEMP 97.8; O2SAT 95
[2024-12-07 20:00] VITALS: PULSE 70; RESP 18; O2SAT 97
[2024-12-07 22:57] VITALS: BP_SYST 118; BP_SYST 138; BP_DIAS 55; BP_DIAS 81; PULSE 110; PULSE 73; RESP 17; TEMP 97.6; TEMP 98.9; O2SAT 96; O2SAT 97
[2024-12-08] VITALS (7 sets, daily range): BP systolic 110–130; BP diastolic 35–81; PULSE 63–90; RESP 17–20; TEMP 97.6–98.3; O2SAT 94–98
[2024-12-08 08:44] LABS: Hematocrit 41.0 % (36.0-46.0); Hemoglobin 13.8 g/dL (12.2-16.2); Mean Corpuscular Hemoglobin 29.0 pg (28.0-32.0); Mean Corpuscular Volume 86.0 fL (80.0-100.0); Nucleated Red Blood Cells % 0.1 %
[2024-12-08 08:55] LABS: Anion Gap 9 (5-15); Carbon Dioxide 26 mmol/L (20-31); Chloride 100 mmol/L (98-107); Potassium 3.9 mmol/L (3.5-5.1)
[2024-12-08 08:56] LABS: Calcium 10.0 mg/dL (8.7-10.4)
[2024-12-08 08:59] LABS: Sodium 135 mmol/L (136-145)
[2024-12-08 09:01] LABS: BUN/Creatinine Ratio 24.2 (10.0-20.0); Blood Urea Nitrogen 23 mg/dL (9-23)
[2024-12-08 09:04] LABS: Glucose 114 mg/dL (74-106)
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
[2024-12-09 01:00] VITALS: BP 101/65; PULSE 71; RESP 17; TEMP 98.7; O2SAT 96
[2024-12-09 05:00] VITALS: BP 128/95; PULSE 78; RESP 18; TEMP 98.3; O2SAT 99
[2024-12-09 06:49] LABS: Hematocrit 41.4 % (36.0-46.0); Hemoglobin 14.0 g/dL (12.2-16.2); Mean Corpuscular Hemoglobin 29.0 pg (28.0-32.0); Mean Corpuscular Volume 85.7 fL (80.0-100.0); Nucleated Red Blood Cells % 0.0 %
[2024-12-09 06:58] LABS: Alanine Aminotransferase 15 U/L (7-40); Albumin 4.0 g/dL (3.2-4.8); Alkaline Phosphatase 107 U/L (46-116); Anion Gap 8 (5-15); BUN/Creatinine Ratio 24.5 (10.0-20.0); Calcium 9.9 mg/dL (8.7-10.4); Carbon Dioxide 28 mmol/L (20-31); Chloride 100 mmol/L (98-107); Glucose 86 mg/dL (74-106); Potassium 4.2 mmol/L (3.5-5.1); Total Protein 7.5 g/dL (5.7-8.2)
[2024-12-09 06:59] LABS: Bilirubin, Total 0.4 mg/dL (0.2-1.0); Blood Urea Nitrogen 25 mg/dL (9-23); Sodium 136 mmol/L (136-145)
[2024-12-09 08:00] VITALS: PULSE 70
[2024-12-09 08:30] VITALS: BP 115/64; PULSE 76; RESP 14; TEMP 97.9; O2SAT 96
[2024-12-09 09:00] VITALS: BP 116/64; PULSE 76; RESP 14; TEMP 97.9; O2SAT 96
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
[2024-12-09 12:30] VITALS: BP 104/50; PULSE 74; RESP 14; TEMP 98.6; O2SAT 94
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
--- NOTE | 2024-12-09 16:39 | DVHDSRES ---
Discharge Summary Date of Admission Resident Creating Document: LUIS AVALOS RESIDENT Dec 03, 2024 at 23:00 Date of Discharge: Dec 09, 2024 Admitting Diagnosis Chest pain. Wounds: No wounds present. Labs/Diagnostic Data: Laboratory Results Test 12/09/24 05:40 12/05/24 13:13 12/04/24 13:07 12/04/24 10:03 White Blood Count 8.5 10^3/uL (4.4-10.8) Red Blood Count 4.83 10^6/uL (4.0-5.20) Hemoglobin 14.0 g/dL (12.2-16.2) Hematocrit 41.4 % (36.0-46.0) Mean Corpuscular Volume 85.7 fL (80.0-100.0) Mean Corpuscular Hemoglobin 29.0 pg (28.0-32.0) Mean Corpuscular Hemoglobin Concent 33.9 g/dL (32.0-36.0) Red Cell Distribution Width 14.8 % (11.8-14.3) Platelet Count 321 10^3/uL (140-450) Mean Platelet Volume 7.7 fL (6.9-10.8) Neutrophils (%) (Auto) 67.2 % (37.0-80.0) Lymphocytes (%) (Auto) 23.2 % (10.0-50.0) Monocytes (%) (Auto) 7.9 % (0.0-12.0) Eosinophils (%) (Auto) 1.5 % (0.0-7.0) Basophils (%) (Auto) 0.2 % (0.0-2.0) Neutrophils # (Auto) 5.7 10 ^3/uL (1.6-8.6) Lymphocytes # (Auto) 2.0 10 ^3/uL (0.4-5.4) Monocytes # (Auto) 0.7 10 ^3/uL (0-1.3) Eosinophils # (Auto) 0.1 10 ^3/uL (0-0.8) Basophils # (Auto) 0 10 ^3/uL (0-0.2) Nucleated Red Blood Cells 0.0 % Sodium Level 136 mmol/L (136-145) Potassium Level 4.2 mmol/L (3.5-5.1) Chloride Level 100 mmol/L (98-107) Carbon Dioxide Level 28 mmol/L (20-31) Anion Gap 8 (5-15) Blood Urea Nitrogen 25 mg/dL (9-23) Creatinine 1.02 mg/dL (0.550-1.02) Glomerular Filtration Rate Calc 70 mL/min (>90) BUN/Creatinine Ratio 24.5 (10.0-20.0) Serum Glucose 86 mg/dL (74-106) Calcium Level 9.9 mg/dL (8.7-10.4) Total Bilirubin 0.4 mg/dL (0.2-1.0) Aspartate Amino Transferase (AST) 23 U/L (13-40) Alanine Aminotransferase (ALT) 15 U/L (7-40) Alkaline Phosphatase 107 U/L (46-116) Total Protein 7.5 g/dL (5.7-8.2) Albumin 4.0 g/dL (3.2-4.8) Influenza Type A Antigen Negative (Negative) Influenza Type B Antigen Negative (Negative) SARS-CoV-2 Antigen (Rapid) Negative (NEGATIVE) Urine Color Yellow (Yellow) Urine Clarity Hazy (Clear) Urine pH 6.5 (5.0-9.0) Urine Specific [place] 1.022 (1.001-1.035) Urine Protein Trace (Negative) Urine Ketones Negative (Negative) Urine Blood Negative /uL (Negative) Urine Nitrite Negative (Negative) Urine Bilirubin Negative (Negative) Urine Urobilinogen Normal mg/dL (Negative) Urine Leukocyte Esterase Trace /uL (Negative) Urine RBC 6 /hpf (0 - 4) Urine Microscopic WBC 8 /HPF (0-5) Urine Squamous Epithelial Cells Mod /hpf (<5) Urine Bacteria Few /hpf (None Seen) Urine Mucus Few (None Seen) Urine Glucose Normal mg/dL (Normal) Urine Test Negative (Negative) Urine Opiates Screen Neg (NEGATIVE) Urine Fentanyl Screen Neg (NEGATIVE) Urine Barbiturates Screen Neg (NEGATIVE) Urine Phencyclidine Screen Neg (NEGATIVE) Urine Amphetamines Screen Pos (NEGATIVE) Urine Benzodiazepines Screen Neg (NEGATIVE) Urine Cocaine Screen Neg (NEGATIVE) Urine Cannabinoids Screen Pos (NEGATIVE) POC Glucose 116 mg/dl (70-106) Test 12/04/24 03:06 12/03/24 19:02 12/03/24 17:33 Hemoglobin A1c 5.0 % A1C (<5.7) Magnesium Level 2.0 mg/dL (1.6-2.6) Triglycerides Level 77 mg/dL (< 150) Cholesterol Level 155 mg/dL (< 200) LDL Cholesterol 89 mg/dL (< 100) HDL Cholesterol 63 mg/dL (40-59) Thyroid Stimulating Hormone (TSH) 3.35 uIU/mL (0.55-4.78) Troponin I High Sensitivity 5 ng/L (</=34) B-Type Natriuretic Peptide 72.34 pg/mL (0-100) Other Laboratory Tests 12/09/24 05:40 Brief Hx & Hospital Course: Namita Diallo is a 44-year-old female with past medical history of HTN, 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 Chest pain is localized, stabbing and pressure like sensation, aggravated on minimal exertion, relief on rest. EMS administered sublingual nitroglycerin tablets which improved the patient's chest. Patient having multiple history of similar symptom and last episode on November 22, went to [facility] ER and discharged after workup. Patient seen by separator inserter in [place] and last visit was 6 months ago. Patient unable to walk more than 1 block due to feeling SOB. Currently denies any fever, cough, headache, nausea, abdominal pain, dysuria, no nausea or vomit. On the second day post admission the patient reported that the chest pain and pressure have subside. The cardiology consult and ECHO was done. ECHO reported EF 55-60%. ACS was ruled out. HEART score: 1 point (low score) Cardiology will follow up as out-patient. On 12/05, patient reported thought of self harm and harm others (Father). Psychiatric consult was placed. She was evaluated by Psychiatry yesterday & was advised on sitter, 5150, placement in psychiatry [facility], [place]. Continues to express ideation to hurt her father with any necessary means. No complains of chest pain today. Her toxicology screen was positive for amphetamines, cannabis. UPT negative. Vitals are stable. We will consult social media campaign manager for placement in Psychiatry [facility].Today, The patient was evaluated at bedside, she reports feeling better, no suicidal ideation or ideation to hurt others (father). Psychiatric evaluation was performed they recommend 5150 criteria no met, no inpatient admission. Patient will be discharge today contact information for domestic violence services and safe housing resources, referral to mental health, substance use treatment. Patient will follow up with mental health, cardiology, PCP in one week. shared services representative spoke with the patient and provided homeless resources. Unfortunately, before the discharge process the patient was refusing any type of discharge plan or recommendations and eloped from the hospital. Discharge Plan: Citalopram 20 mg po qd Lisinopril 40 mg po qd Atorvastatin 40 mg po qd Furosemide 20mg po qd Substance abuse treatment resources Domestic violence services and safe housing resources. F/U with PCP in one week F/U with Cardiology in 2 weeks F/U mental health in one week ROS: Constitutional: anxious mood. Denies weight loss, fever and chills. HEENT: Denies changes in vision and hearing. Respiratory: Denies shortness of breath and cough Cardiovascular: Denies chest discomfort, pain, pressure or palpitations GI: Denies abdominal pain, nausea, vomiting and diarrhea. : Denies dysuria and urinary frequency. Musculoskeletal: Denies myalgias and joint pain Skin: Denies rash and pruritus. Neurological: Denies dizziness, headache, vision or hearing problems Physical Exam: General Appearance: Anxious, Oriented X3, No acute distress HEENT: Atraumatic, PERRLA, EOMI Respiratory: Clear to auscultation, Normal air movement Cardiovascular: Regular rate, Normal S1, Normal S2, No chest pain, pressure or palpitations. Abdominal: Normal bowel sounds, Soft, No tenderness Extremities: No clubbing, No cyanosis, no leg swelling. Skin: No rashes, No breakdown Neuro: Normal gait, Normal speech Mini-mental test: Alert, Oriented to time place person. Suicidal ideation have stopped, she reports no thoughts of hurt others anymore. Assessment during the admission: # Acute Chest pain, rule out ACS ruled out # CHF with preserved ejection fraction # COPD without exacerbation # Essential hypertension # Suicidal ideation, resolved. # Subtance abused disorder (methanfetamines) # Morbid obesity, BMI 38.0 Consults/Reason for consult psychiatry for suicidal ideation. Cardiology to rule out ACS. shared services representative for homeless resources. Operations or Procedures CHEST RADIOGRAPH Indication: cp Technique: Single frontal view of the chest was obtained Comparison: XY CHEST PORTABLE on DOS: 11/23/24 FINDINGS: Lines and Tubes: None. Left-sided approach dual lead pacemaker terminating within right atrium and right ventricle. Lungs: No focal consolidation. Pleura: No effusion. No pneumothorax. Cardiomediastinal contours: Unremarkable Bones: No acute osseous abnormality. IMPRESSION: No acute cardiopulmonary disease. Condition at Discharge: Undetermined Final Diagnosis/Problems List # Acute Chest pain, rule out ACS ruled out #CHF with preserved ejection fraction # COPD without exacerbation # Essential hypertension #Suicidal ideation, resolved. #Subtance abused disorder (methanfetamines) # Morbid obesity, BMI 38.0 Discharge Disposition: Eloped SNF Discharge Will this Physician continue t: No Discharge Instruct/Medications Diet: Cardiac 2g Na,low cholest Activity: No Restrictions, As Tolerated Follow Up/Referral: F/U with PCP in one week F/U with Cardiology in 2 weeks F/U mental health in one week Medications: Continue home medicaitons Citalopram 20 mg po qd Lisinopril 40 mg po qd Atorvastatin 40 mg po qd Furosemide 20mg po qd Scheduled Atorvastatin Calcium (Atorvastatin Calcium), 1 TAB PO DAILY Citalopram Hydrobromide (Citalopram Hydrobromide), 20 MG PO DAILY Furosemide (Furosemide), 1 TAB PO DAILY Lisinopril (Lisinopril), 1 TAB PO DAILY Discharge Statement: "Patient was advised to return to the ER or call 911 if any headaches, dizziness, shortness of breath, chest pain, abdominal pain, bleeding, fevers, or worsening of medical condition. Patient was counseled about treatment plan, medications, possible side effects, patientverbalized understanding. All questions were answered to the best of my ability. This discharge took greater then 30 minutes in planning, reviewing documentation, counseling the patient, and discussing with other team members." ASSESSMENT ASSESSMENT Assessment LUIS AVALOS RESIDENT Dec 09, 2024 16:39
[2024-12-09] MEDS ORDERED: FURO20TA3 PO (17:15)
[2024-12-09] MEDS ORDERED: CITA-77 PO (17:15)
[2024-12-09] MEDS ORDERED: ATOR40TA52 PO (17:15)
[2024-12-09] MEDS ORDERED: LISI20TA56 PO (17:15)
== END 2024-12-09 17:20 | disposition left against medical advice (07) | DRG 203 ==
LOC: ER 16:46 → EDBD 16:46 → OVERFLOW 23:00 → TELE-CENTR 12-05 22:42 → TELE-EAST 12-06 20:58
PROVIDERS: ADMIT Student in an Organized Health Care Education/Training Program; ATTEND Emergency Medicine
DX: R07.89 Other chest pain (principal); R45.851 Suicidal ideations; I50.32 Chronic diastolic (congestive) heart failure; I11.0 Hypertensive heart disease with heart failure; E66.01 Morbid (severe) obesity due to excess calories; Z68.38 Body mass index [BMI] 38.0-38.9, adult; J44.9 Chronic obstructive pulmonary disease, unspecified; F32.9 Major depressive disorder, single episode, unspecified; F15.10 Other stimulant abuse, uncomplicated; Z66 Do not resuscitate; F43.25 Adjustment disorder with mixed disturbance of emotions and conduct; E78.5 Hyperlipidemia, unspecified; F17.290 Nicotine dependence, other tobacco product, uncomplicated; Z95.0 Presence of cardiac pacemaker; Z91.51 Personal history of suicidal behavior; Z91.410 Personal history of adult physical and sexual abuse; Z79.899 Other long term (current) drug therapy; Z59.02 Unsheltered homelessness; Z90.49 Acquired absence of other specified parts of digestive tract; Z88.5 Allergy status to narcotic agent; Z88.0 Allergy status to penicillin
CPT/HCPCS: 36415; 71045; 80048; 80053; 80061; 80307; 81001; 81025; 82962; 83036; 83735; 83880; 84443; 84484; 85025; 87426; 87804; 93005; 93306; 99291; G0378